=== PATIENT | female | born 1980 | race Caucasian/White ===

== ENCOUNTER 2017-06-14 14:53 | Inpatient (IN) | payer OTHER ==
--- NOTE | 2017-06-14 15:49 | ED ---
General Adult HPI - General Chief complaint: Psychiatric Symptoms Stated complaint: Mental Health Time Seen by Provider: 06/14/17 15:11 Source: patient, police, RN notes reviewed, old records reviewed Mode of arrival: ambulatory Limitations: no limitations - History of Present Illness Initial comments: This is a 36-year-old female ER for evaluation of suicidal thoughts and ideation. Patient is admitted tricking, being everyday drinker for greater than 20 years. Patient states that she is sick and tired of living, secondary living the life that she was, feels weak fatigue nauseous. Patient denies any specific life advance, denies any other drugs - Related Data Home Medications Medication Instructions Recorded Confirmed No Known Home Medications [No 02/10/16 06/14/17 Known Home Medications] Allergies Allergy/AdvReac Type Severity Reaction Status Date / Time eggplant Allergy Anaphylaxis Uncoded 06/14/17 17:13 Review of Systems ROS Statement: Those systems with pertinent positive or pertinent negative responses have been documented in the HPI. ROS Other: All systems not noted in ROS Statement are negative. Past Medical History Past Medical History: No Reported History History of Any Multi-Drug Resistant Organisms: None Reported Past Surgical History: No Surgical Hx Reported Past Psychological History: No Psychological Hx Reported Smoking Status: Former smoker Past Alcohol Use History: Abuse, Daily, Heavy Past Drug Use History: None Reported General Exam Limitations: no limitations General appearance: alert, in no apparent distress Head exam: Present: atraumatic, normocephalic, normal inspection Eye exam: Present: normal appearance, PERRL, EOMI. Absent: scleral icterus, conjunctival injection, periorbital swelling ENT exam: Present: normal exam, mucous membranes moist Neck exam: Present: normal inspection. Absent: tenderness, meningismus, lymphadenopathy Respiratory exam: Present: normal lung sounds bilaterally. Absent: respiratory distress, wheezes, rales, rhonchi, stridor Cardiovascular Exam: Present: regular rate, normal rhythm, normal heart sounds. Absent: systolic murmur, diastolic murmur, rubs, gallop, clicks GI/Abdominal exam: Present: soft, normal bowel sounds. Absent: distended, tenderness, guarding, rebound, rigid Extremities exam: Present: normal inspection, full ROM, normal capillary refill. Absent: tenderness, pedal edema, joint swelling, calf tenderness Back exam: Present: normal inspection Neurological exam: Present: alert, oriented X3, CN II-XII intact Psychiatric exam: Present: normal affect, normal mood Skin exam: Present: warm, dry, intact, normal color. Absent: rash Course Vital Signs 06/14/17 15:03 Temperature 97.4 F L Pulse Rate 130 H Respiratory 22 Rate Blood Pressure 123/86 O2 Sat by Pulse 99 Oximetry - Reevaluation(s) Reevaluation #1: 06/14/17 17:34 Patient continues to admit to suicidal thoughts Medical Decision Making - Medical Decision Making 36. EF reevaluation severe alcohol intoxication suicidal thoughts and ideation. Patient will be admitted for alcohol intoxication, psychiatric evaluation - Lab Data Result diagrams: 06/14/17 16:30 06/14/17 16:30 Lab Results 06/14/17 06/14/17 06/14/17 Range/Units 15:05 15:05 16:30 WBC (3.8-10.6) k/uL RBC (3.80-5.40) m/uL Hgb (11.4-16.0) gm/dL Hct (34.0-46.0) % MCV (80.0-100.0) fL MCH (25.0-35.0) pg MCHC (31.0-37.0) g/dL RDW (11.5-15.5) % Plt Count (150-450) k/uL Neutrophils % % Lymphocytes % % Monocytes % % Eosinophils % % Basophils % % Neutrophils # (1.3-7.7) k/uL Lymphocytes # (1.0-4.8) k/uL Monocytes # (0-1.0) k/uL Eosinophils # (0-0.7) k/uL Basophils # (0-0.2) k/uL PT (9.0-12.0) sec INR (<1.2) Sodium 146 H (137-145) mmol/L Potassium 3.0 L* (3.5-5.1) mmol/L Chloride 104 (98-107) mmol/L Carbon Dioxide 28 (22-30) mmol/L Anion Gap 14 mmol/L BUN 3 L (7-17) mg/dL Creatinine 0.50 L (0.52-1.04) mg/dL Est GFR (MDRD) Af Amer >60 (>60 ml/min/1.73 sqM) Est GFR (MDRD) Non-Af >60 (>60 ml/min/1.73 sqM) Glucose 82 (74-99) mg/dL Calcium 9.3 (8.4-10.2) mg/dL Phosphorus 3.8 (2.5-4.5) mg/dL Magnesium 1.9 (1.6-2.3) mg/dL Total Bilirubin 0.5 (0.2-1.3) mg/dL AST 105 H (14-36) U/L ALT 81 H (9-52) U/L Alkaline Phosphatase 208 H (38-126) U/L Total Protein 7.5 (6.3-8.2) g/dL Albumin 4.4 (3.5-5.0) g/dL Lipase 787 H (23-300) U/L Urine Color Light Yellow Urine Appearance Clear (Clear) Urine pH 6.5 (5.0-8.0) Ur Specific [place] 1.003 (1.001-1.035) Urine Protein Negative (Negative) Urine Glucose (UA) Negative (Negative) Urine Ketones Negative (Negative) Urine Blood Negative (Negative) Urine Nitrite Negative (Negative) Urine Bilirubin Negative (Negative) Urine Urobilinogen <2.0 (<2.0) mg/dL Ur Leukocyte Esterase Negative (Negative) Urine Opiates Screen Not Detected (NotDetected) Ur Oxycodone Screen Not Detected (NotDetected) Urine Methadone Screen Not Detected (NotDetected) Ur Propoxyphene Screen Not Detected (NotDetected) Ur Barbiturates Screen Not Detected (NotDetected) U Tricyclic Antidepress Not Detected (NotDetected) Ur Phencyclidine Scrn Not Detected (NotDetected) Ur Amphetamines Screen Not Detected (NotDetected) U Methamphetamines Scrn Not Detected (NotDetected) U Benzodiazepines Scrn Not Detected (NotDetected) Urine Cocaine Screen Not Detected (NotDetected) U Marijuana (THC) Screen Not Detected (NotDetected) Serum Alcohol 474 mg/dL 06/14/17 06/14/17 Range/Units 16:30 16:30 WBC 8.4 (3.8-10.6) k/uL RBC 4.00 (3.80-5.40) m/uL Hgb 14.4 (11.4-16.0) gm/dL Hct 39.7 (34.0-46.0) % MCV 99.1 (80.0-100.0) fL MCH 36.0 H (25.0-35.0) pg MCHC 36.3 (31.0-37.0) g/dL RDW 13.3 (11.5-15.5) % Plt Count 231 (150-450) k/uL Neutrophils % 48 % Lymphocytes % 39 % Monocytes % 8 % Eosinophils % 1 % Basophils % 0 % Neutrophils # 4.0 (1.3-7.7) k/uL Lymphocytes # 3.3 (1.0-4.8) k/uL Monocytes # 0.7 (0-1.0) k/uL Eosinophils # 0.1 (0-0.7) k/uL Basophils # 0.0 (0-0.2) k/uL PT 14.2 H (9.0-12.0) sec INR 1.5 H (<1.2) Sodium (137-145) mmol/L Potassium (3.5-5.1) mmol/L Chloride (98-107) mmol/L Carbon Dioxide (22-30) mmol/L Anion Gap mmol/L BUN (7-17) mg/dL Creatinine (0.52-1.04) mg/dL Est GFR (MDRD) Af Amer (>60 ml/min/1.73 sqM) Est GFR (MDRD) Non-Af (>60 ml/min/1.73 sqM) Glucose (74-99) mg/dL Calcium (8.4-10.2) mg/dL Phosphorus (2.5-4.5) mg/dL Magnesium (1.6-2.3) mg/dL Total Bilirubin (0.2-1.3) mg/dL AST (14-36) U/L ALT (9-52) U/L Alkaline Phosphatase (38-126) U/L Total Protein (6.3-8.2) g/dL Albumin (3.5-5.0) g/dL Lipase (23-300) U/L Urine Color Urine Appearance (Clear) Urine pH (5.0-8.0) Ur Specific [place] (1.001-1.035) Urine Protein (Negative) Urine Glucose (UA) (Negative) Urine Ketones (Negative) Urine Blood (Negative) Urine Nitrite (Negative) Urine Bilirubin (Negative) Urine Urobilinogen (<2.0) mg/dL Ur Leukocyte Esterase (Negative) Urine Opiates Screen (NotDetected) Ur Oxycodone Screen (NotDetected) Urine Methadone Screen (NotDetected) Ur Propoxyphene Screen (NotDetected) Ur Barbiturates Screen (NotDetected) U Tricyclic Antidepress (NotDetected) Ur Phencyclidine Scrn (NotDetected) Ur Amphetamines Screen (NotDetected) U Methamphetamines Scrn (NotDetected) U Benzodiazepines Scrn (NotDetected) Urine Cocaine Screen (NotDetected) U Marijuana (THC) Screen (NotDetected) Serum Alcohol mg/dL Disposition Clinical Impression: Acute anxiety, Depression, Suicidal ideation, Toxic effect of alcohol Disposition: ADMITTED IP TO THIS [facility] Condition: Fair Referrals: None,Stated [Primary Care Provider] - 1-2 days
[2017-06-14] MEDS ORDERED: FOLIC ACID 1 MG TAB PO STA (15:55)
[2017-06-14] MEDS ORDERED: THIAMINE 100 MG/ML 2 ML VIAL IVPB STA (15:55)
[2017-06-14] MEDS ORDERED: SODIUM CHLORIDE 0.9% 500 ML IV STA (15:55)
[2017-06-14] MEDS ORDERED: SODIUM CHLORIDE 0.9% 1,000 ML IV STA ×2 (15:55)
[2017-06-14] MEDS ORDERED: MULTIVITAMINS, THERA 1 EACH TAB PO STA (15:55)
[2017-06-14 16:41] LABS: Basophils % (A) 0 %; CH 36.2; CHCM 36.7; Eosinophils # (A) 0.1 k/uL (0-0.7); Eosinophils % (A) 1 %; HCT 39.7 % (34.0-46.0); HDW 2.66; HGB 14.4 gm/dL (11.4-16.0); Luc # (Auto) 0.32; Luc % (Auto) 4; Lymphocytes # (A) 3.3 k/uL (1.0-4.8); Lymphocytes % (A) 39 %; MCHC 36.3 g/dL (31.0-37.0); MCV 99.1 fL (80.0-100.0); Mean Platelet Volume 7.8; Monocytes # (A) 0.7 k/uL (0-1.0); Monocytes % (A) 8 %; Neutrophils % (A) 48 %; RDW 13.3 % (11.5-15.5); WBC 8.4 k/uL (3.8-10.6); WBC (Perox) 8.25
[2017-06-14 16:48] LABS: INR 1.5 (<1.2)
[2017-06-14 16:49] LABS: Prothrombin Time 14.2 sec (9.0-12.0)
[2017-06-14 16:51] LABS: Appearance,Urine Clear (Clear); Bilirubin,Urine Negative (Negative); Glucose,Urine (UA) Negative (Negative); Ketones,Urine Negative (Negative); Leukocyte Esterase,Urine Negative (Negative); Nitrite,Urine Negative (Negative); PH, Urine 6.5 (5.0-8.0); Protein,Urine Negative (Negative); Specific Gravity,Urine 1.003 (1.001-1.035); UA Billing (MACRO vs. MICRO) CHEM; Urobilinogen,Urine <2.0 mg/dL (<2.0)
[2017-06-14 16:52] LABS: ALT 81 U/L (9-52); AST 105 U/L (14-36); Alkaline Phosphatase 208 U/L (38-126); Anion Gap 14 mmol/L; Blood Urea Nitrogen 3 mg/dL (7-17); Calcium 9.3 mg/dL (8.4-10.2); Carbon Dioxide 28 mmol/L (22-30); Chloride 104 mmol/L (98-107); Glucose 82 mg/dL (74-99); Magnesium 1.9 mg/dL (1.6-2.3); Non-African American GFR(MDRD) >60 (>60 ml/min/1.73 sqM); Phosphorous 3.8 mg/dL (2.5-4.5); Sodium 146 mmol/L (137-145); Total Bilirubin 0.5 mg/dL (0.2-1.3); Total Protein 7.5 g/dL (6.3-8.2)
[2017-06-14 17:15] LABS: Alcohol 474 mg/dL
[2017-06-14] MEDS ORDERED: LORazepam 2 MG/ML SYRINGE IV PRN ×3 (17:29)
[2017-06-14] MEDS ORDERED: SODIUM CHLORIDE 0.9% 1,000 ML IV ONE (17:29)
[2017-06-14] MEDS ORDERED: POTASSIUM BICARB-CITRIC ACID 25 MEQ TABLET.EFF PO STA (17:29)
[2017-06-14] MEDS ORDERED: THIAMINE 100 MG/ML 2 ML VIAL IM STA (17:29)
[2017-06-14] MEDS: POTASSIUM CHLORIDE 20 MEQ, LIDOCAINE 2% INJ 20 MG in SODIUM CHLORIDE 0.9% 100 ML IVPB SCH ×3 (18:17→23:31)
[2017-06-14] MEDS ORDERED: ACETAMINOPHEN TAB 325 MG TAB PO PRN (21:56)
[2017-06-14] MEDS ORDERED: SODIUM CHLORIDE 0.9% 1,000 ML with MVI, ADULT NO.4 WITH VIT K 10 ML, THIAMINE 100 MG, F... IV ONE ×4 (21:59)
[2017-06-15] MEDS: 1: MVI, ADULT NO.4 WITH VIT K 10 ML, THIAMINE 100 MG, FOLIC ACID 1 MG in SODIUM CHLORIDE IV SCH ×8 (01:56→11:11)
[2017-06-15] MEDS ORDERED: FAMOTIDINE 20 MG TAB PO SCH (09:00)
[2017-06-15 09:42] LABS: ALT 58 U/L (9-52); AST 78 U/L (14-36); Alkaline Phosphatase 148 U/L (38-126); Amylase 40 U/L (30-110); Anion Gap 7 mmol/L; Blood Urea Nitrogen <2 mg/dL (7-17); Calcium 8.2 mg/dL (8.4-10.2); Carbon Dioxide 27 mmol/L (22-30); Chloride 101 mmol/L (98-107); Glucose 80 mg/dL (74-99); Non-African American GFR(MDRD) >60 (>60 ml/min/1.73 sqM); Potassium 3.9 mmol/L (3.5-5.1); Sodium 135 mmol/L (137-145); Total Bilirubin 1.1 mg/dL (0.2-1.3); Total Protein 5.5 g/dL (6.3-8.2)
--- NOTE | 2017-06-15 10:00 | HP ---
HISTORY AND PHYSICAL CHIEF COMPLAINTS: Alcohol intake and suicidal ideations. HISTORY OF PRESENT ILLNESS: This 36-year-old woman not being followed by any primary physician in the outpatient setting had history of tonsillectomy, depression, history of significant alcohol intake. The patient has been to rehab previously but apparently relapsed and patient was drinking heavily about one fifth and the patient has expressed some suicidal ideations and is admitted for further evaluation and treatment. On admission, the patient is found to be severely hypokalemic at 3 and sodium 146. There is no history of fever, rigors. No history of headache, loss of consciousness, seizures. Serum alcohol is found to be 474. Lipase was 4787. There is no history of any fever, rigors or chills at this time. PAST MEDICAL HISTORY: History of depression, PTSD, history of alcohol intake. HOME MEDICATION: None. ALLERGIES: EGGPLANT. FAMILY HISTORY: History of cancer of breast and ovarian. SOCIAL HISTORY: Previous history of smoking, history or alcohol. REVIEW OF SYSTEMS: ENT: No diminished hearing or vision. CARDIOVASCULAR: No angina, no palpitations. RESPIRATORY: No cough, hemoptysis. GI: No nausea : No dysuria. NERVOUS SYSTEM: No numbness or weakness. MUSCULOSKELETAL: As mentioned earlier. HEMATOLOGY/ONCOLOGY: No history of anemia. ENDOCRINE: No history of diabetes or hypothyroidism. CONSTITUTIONAL: As mentioned earlier. DERMATOLOGY: Negative. RHEUMATOLOGY: Negative. PSYCHIATRY: As mentioned earlier. PHYSICAL EXAM: Patient is alert, oriented x3. The pulse is 138, blood pressure is 120/82, respiratory 22, temp is 97.4, pulse ox 98% on room air. HEENT: Conjunctivae normal. Oral mucosa moist. NECK: No jugular venous distention. No carotid bruit. No lymph node enlargement. No thyroid enlargement. CARDIOVASCULAR: S1, S2. No S3 or S4. RESPIRATORY: Breath sounds diminished at the bases. No rhonchi, no crackles. ABDOMEN: Soft, nontender. No guarding, no rigidity. No mass palpable. LEGS: No edema, no swelling. NERVOUS SYSTEM: Higher function as mentioned. Moves all four limbs. No focal motor sensory deficits. LYMPHATICS: No lymphadenopathy in the neck, axillae or groin. SKIN: No rash, ulcer or bleeding. LABS: INR is 1.1. Sodium 140, potassium 3. Other labs are noted. ASSESSMENT: 1. Acute alcohol intoxication and withdrawal. 2. Acute alcoholic hepatitis. 3. Severe hypokalemia. 4. Hypernatremia with dehydration. 5. Elevated lipase with possible mild acute pancreatitis. 6. History of depression and PTSD by history. 7. Nicotine dependence. 8. History of ETOH. 9. Suicidal ideation. 10.Depression:. RECOMMENDATIONS AND DISCUSSION: In this 36-year-old woman presents with multiple complex medical issues. We will monitor the patient closely. Continue the current medications and continue symptomatic treatment. I recommend CIWA protocol and continue to monitor. Otherwise replace potassium and check magnesium. Psychiatric evaluation. I would also recommend amylase and lipase also. Other than that resume the rest of the home medications. Monitor blood pressure closely. Ativan p.r.n. Prognosis guarded. Discussed with the patient. Recommend alcohol rehab and as well as close follow up with primary physician in the outpatient setting. Further recommendations to follow. DEBORAH / ARNEL: [id number] /
[2017-06-15] MEDS ORDERED: THIAMINE 100 MG TAB PO SCH (12:00)
[2017-06-15 13:45] VITALS: BMI 19.3
[2017-06-15 14:29] VITALS: BP 122/79; PULSE 95; RESP 18; TEMP 98.1
--- NOTE | 2017-06-16 11:31 | PN ---
PROGRESS NOTE DATE OF SERVICE: 06/14/2017 INTERVAL HISTORY: This 36-year-old woman is admitted with ETOH as well as suicidal ideation, being closely monitored. No chest pain. No palpitations. No fever. Psychiatric evaluation pending. PHYSICAL EXAM: Alert oriented times three. Pulse 95, blood pressure 102/70, respiration 18, temperature 98.2, pulse ox 97% on room air. HEENT conjunctivae normal. Neck: No jugular venous distention. Cardiovascular: S1, S2 muffled. Respiratory: Breath sounds diminished in the bases. No rhonchi and no crackles. ABDOMEN: Soft, nontender. Legs no edema. No swelling. Central nervous system: No focal deficits. LABS: Sodium 133, potassium 3.8, LFTs are noted. ASSESSMENT: 1. Acute alcohol intoxication withdrawal. 2. Acute alcoholic hepatitis. 3. Severe hypokalemia. 4. Hypernatremia with dehydration present on admission. 5. Elevated lipase, possible mild acute pancreatitis. 6. History of depression. 7. Posttraumatic stress disorder history. 8. History of nicotine dependence. RECOMMENDATIONS AND DISCUSSION: Recommend to continue current medications. Continue symptomatic treatment. Monitor closely. Psychiatric evaluation. Guarded prognosis. Further recommendations to follow. Dyspnea office thank. MMODL / IJN: [id number] /
--- NOTE | 2017-06-16 11:52 | CONS ---
PSYCHIATRIC CONSULTATION DATE OF CONSULTATION: 06/15/2017. PURPOSE OF CONSULTATION: Evaluate for alcohol dependence and acute alcohol withdrawal. HISTORY OF PRESENT ILLNESS: The patient is a 36-year-old female, who was admitted due to significant long- term alcohol abuse, acute alcohol withdrawal and depression with suicidal thinking. The patient states that she first started drinking at age 13. Both her parents had alcohol dependence. The patient drank pretty much on a daily basis since mid teens. She entered the [facility] at age 20 and remained for 6 years. She entered treatment while in the at age 21, which was her only substance use treatment program. She has not had a past psychiatric hospitalization. She notes that she has continued to drink regularly throughout her adult life from at least age 20 on. She has not had any extended periods of sobriety up to the present. She says that her only efforts to stop drinking have been in the last 6 months. She said she has made 11 attempts at stopping drinking. She will go 1-2 weeks without drinking. She said typically she then will take a drink as a "celebration" for having been free of alcohol and then very quickly get back into regular drinking. She says in her adulthood the longest period that she may have remained sober would be typically up to about 2 weeks at most. She notes that she drinks anywhere from a pint to a fifth a day. She says that she has been quite depressed though her depression relates to the fact that she keeps relapsing with alcohol. She says she has reached a point where she recognizes the need to stop drinking. She said she pretty much lost everything about 6 months ago. She was fired from a job due to her drinking. She has since lost her house, car and boyfriend. She notes that she has not been prescribed psychotropic medications. She reports that her sleep is broken. She typically sleeps for an hour and then wakes up and this is the pattern she has had for a long time. She says that she was not truly suicidal at the time of admission, though was just feeling distressed about her situation of drinking. She does have a plan for recovery. She said that she has called the [place] and has an intake appointment on Friday the at the [facility] for outpatient counseling. She says that she knows that when she sees a counselor the counselor will be able to arrange a referral for inpatient services. She says that she counts on that based on her knowledge of the [facility]. She feels that she needs to be in a treatment program for 30 days or hopefully longer. In regards to psychiatric issues, she denies any current or past problems with hallucinations or delusions. She was vague about whether she has any posttraumatic symptoms though she recognizes that she had a difficult childhood with alcohol problems in the home as well as alcohol throughout her extended family. She denies significant anxiety or panic symptoms. She denies any thoughts or impulses towards suicide. MENTAL STATUS: Patient gave good eye contact. Psychomotor activity was a little restless. Speech was clear. She answered questions with direct responses. Her thoughts were coherent and goal directed. She had a somewhat constricted affect though not to a significant degree. Her mood was dysphoric though appropriate to her situation. She did not appear to be significantly distressed. Her cognition was clear. ASSESSMENT: This 36-year-old female is diagnosed with alcohol dependence. She may have underlying depression though through the course of continued alcohol use and through early withdrawal is difficult to be able to clearly diagnosis major depression. That would respond to antidepressant medications. I had an extensive discussion with the patient regarding withdrawal issues. We discussed that alcohol withdrawal is a 6-12 week process and that beyond 6-8 weeks it might be important for her to get further psychiatric evaluation for underlying mood disorder. The patient appears to have a pretty solid followup plan in place. She has not had significant signs of withdrawal. I reviewed the signs of serious alcohol withdrawal issues which mainly is focused on vital signs particularly fever and diaphoresis though also elevated blood pressure and pulse. The patient has not had those issues in the past. She has not identified any serious issues of withdrawal including hallucinations, seizures or any altered mental status that would suggest delirium tremens. At this point, the patient is stable to be discharged. Her followup will be through the [facility] facility. There are no psychotropic medications indicated at this time. MMRUBENL / INOCENTEN: [id number] / HONEY
== END 2017-06-15 18:30 | disposition home or self-care (01) | DRG 897 ==
LOC: EC 14:53 → 4MS4W 17:29
PROVIDERS: ADMIT Hospitalist; ATTEND Hospitalist
DX: F10.229 Alcohol dependence with intoxication, unspecified (principal); F10.239 Alcohol dependence with withdrawal, unspecified; E87.0 Hyperosmolality and hypernatremia; R45.851 Suicidal ideations; K70.10 Alcoholic hepatitis without ascites; Y90.8 Blood alcohol level of 240 mg/100 ml or more; E87.6 Hypokalemia; F32.9 Major depressive disorder, single episode, unspecified; F43.10 Post-traumatic stress disorder, unspecified; F17.200 Nicotine dependence, unspecified, uncomplicated; E86.0 Dehydration; Z91.018 Allergy to other foods
CPT/HCPCS: 36415; 80053; 80306; 80320; 81003; 82075; 82150; 83690; 83735; 84100; 85025; 85610; 96361; 96374; 99285

== ENCOUNTER 2017-06-21 10:42 | Inpatient (IN) | payer OTHER ==
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
[2017-06-21] MEDS ORDERED: IPRATROPIUM-ALBUTEROL 3 ML NEB INHALATION STA (11:07)
[2017-06-21 11:24] LABS: Basophils # (A) 0.1 k/uL (0-0.2); Basophils % (A) 1 %; CH 35.9; CHCM 35.2; Eosinophils # (A) 0.1 k/uL (0-0.7); Eosinophils % (A) 1 %; HCT 39.7 % (34.0-46.0); HDW 2.42; HGB 13.9 gm/dL (11.4-16.0); Luc # (Auto) 0.24; Luc % (Auto) 3; Lymphocytes % (A) 21 %; MCH 35.8 pg (25.0-35.0); MCV 102.2 fL (80.0-100.0); Macrocytosis Slight; Mean Platelet Volume 7.3; Monocytes # (A) 0.8 k/uL (0-1.0); Monocytes % (A) 9 %; Neutrophils # (A) 6.2 k/uL (1.3-7.7); Neutrophils % (A) 66 %; RBC 3.89 m/uL (3.80-5.40); RDW 12.9 % (11.5-15.5); WBC 9.4 k/uL (3.8-10.6)
[2017-06-21] MEDS: 1: MVI, ADULT NO.4 WITH VIT K 10 ML, THIAMINE 100 MG, FOLIC ACID 1 MG in SODIUM CHLORIDE IV SCH ×8 (11:25→15:03)
[2017-06-21] MEDS ORDERED: SODIUM CHLORIDE 0.9% 1,000 ML BAG ONE (11:25)
[2017-06-21 11:32] LABS: Acetaminophen <10.0 ug/mL; Salicylate <1.0 mg/dL
[2017-06-21 11:49] LABS: Alcohol 561 mg/dL
[2017-06-21 12:07] LABS: Creatine Kinase MB 0.4 ng/mL (0.0-2.4)
[2017-06-21] MEDS ORDERED: THIAMINE 100 MG/ML 2 ML VIAL IM STA (12:14)
[2017-06-21] MEDS ORDERED: LORazepam 2 MG/ML SYRINGE IV PRN ×3 (12:14)
[2017-06-21] MEDS: LORazepam 1 MG TAB PO PRN ×2 (14:50→21:49)
[2017-06-21] MEDS: NICOTINE 21MG/24HR PATCH TRANSDERM SCH (15:03)
[2017-06-21] MEDS ORDERED: METOCLOPRAMIDE 5 MG/ML 2 ML VIAL IVP PRN (15:57)
[2017-06-21] MEDS: THIAMINE 100 MG TAB PO SCH (16:08)
[2017-06-21 16:38] LABS: ALT 82 U/L (9-52); AST 165 U/L (14-36); Alkaline Phosphatase 243 U/L (38-126); Anion Gap 11 mmol/L; Blood Urea Nitrogen 8 mg/dL (7-17); Calcium 8.5 mg/dL (8.4-10.2); Carbon Dioxide 21 mmol/L (22-30); Chloride 108 mmol/L (98-107); Glucose 91 mg/dL (74-99); Non-African American GFR(MDRD) >60 (>60 ml/min/1.73 sqM); Potassium 4.1 mmol/L (3.5-5.1); Sodium 140 mmol/L (137-145); Total Bilirubin 0.5 mg/dL (0.2-1.3); Total Protein 6.5 g/dL (6.3-8.2)
[2017-06-21 18:03] VITALS: BMI 19.3
[2017-06-21] MEDS: HEPARIN SODIUM,PORCINE 5,000 UNIT/ML 1 ML VIAL SQ SCH (21:55)
[2017-06-21] MEDS: HYDROcodone/APAP 5-325MG 1 EACH TAB PO PRN (22:37)
--- NOTE | 2017-06-21 23:21 | HP ---
HISTORY AND PHYSICAL DATE OF SERVICE: 06/21/2017 CHIEF COMPLAINT: EtOH. HISTORY OF PRESENT ILLNESS: This 36-year-old woman with a past medical history of multiple medical problems, including acute alcoholism, history of depression, posttraumatic stress disorder being followed by no primary physician in the outpatient setting was recently admitted to the hospital with acute alcohol intoxication. Patient left the hospital AGAINST MEDICAL ADVICE, but currently patient apparently started drinking again and pile driver operator called the hospital because patient was heavily intoxicated. Patient admitted for further evaluation and treatment. There is no history of fever rigors. No history of headache, loss of consciousness, seizures. The patient apparently had depression and also had suicidal ideation. PAST MEDICAL HISTORY: History of EtOH, history of tonsillectomy, depression, PTSD. MEDICATIONS PRIOR TO ADMISSION: None. ALLERGIES: EGGPLANT. FAMILY HISTORY: History of cancer: Breast cancer, ovarian cancer. SOCIAL HISTORY: History of alcohol and previous history of smoking. REVIEW OF SYSTEMS: ENT: No diminished hearing. No diminished vision. CARDIOVASCULAR: No angina, palpitations. RESPIRATORY: No cough. GI: No nausea, vomiting. : No dysuria. NERVOUS: No numbness or weakness. ALLERGY/IMMUNOLOGY: No asthma, hay fever. MUSCULOSKELETAL: As mentioned earlier. HEMATOLOGY/ONCOLOGY: No history of anemia. ENDOCRINE: No history of diabetes, hypothyroidism. CONSTITUTIONAL: Negative. DERMATOLOGY: Negative. RHEUMATOLOGY: Negative. PSYCHIATRY: As mentioned earlier. PHYSICAL EXAM: The patient is alert, oriented x3. Pulse 134, blood pressure 113/60, respiration 18, temperature 98 degrees, pulse ox 99% on room air. HEENT: Conjunctivae normal. Oral mucosa moist. NECK: No jugular venous distention. No carotid bruits. No lymph node enlargement. CARDIOVASCULAR: S1, S2 muffled. RESPIRATORY: Breath sounds diminished in the bases. A few scattered rhonchi. No crackles. ABDOMEN: Soft, nontender. No mass palpable. LEGS: No edema. No swelling. NERVOUS SYSTEM: Higher functions as mentioned. Moves all 4 limbs. No focal motor or sensory deficits. LYMPHATIC: No lymphadenopathy in neck or axillae. SKIN: No ulcer, rash or bleeding. LABS: Reviewed at this time, shows WBC 9.4, hemoglobin is normal, MCV 102.82. Drug screen is positive for cocaine. Alcohol 561. ASSESSMENT: 1. Acute alcohol intoxication. 2. Positive cocaine and drug screen. 3. History of depression. 4. History of suicidal ideations and posttraumatic stress disorder. 5. History of nicotine dependence. 6. History of hypokalemia and acute pancreatitis during the recent admission. RECOMMENDATIONS AND DISCUSSION: In this 36-year-old woman who presented with multiple complex medical issues, at this time I would recommend continuing the current medications, continuing the symptomatic treatment. Alcohol cessation has been recommended. I would also recommend amylase, lipase, psychiatric evaluation. Otherwise, will also order a CMP which includes the lytes as well on a stat basis. Guarded prognosis because of multiple complex medical issues. Further recommendations to follow. See orders for further details. BALAWA protocol. MMODL / IJN: [id number] /
[2017-06-21 23:22] VITALS: RESP 16
[2017-06-22] MEDS: 1: MVI, ADULT NO.4 WITH VIT K 10 ML, THIAMINE 100 MG, FOLIC ACID 1 MG in SODIUM CHLORIDE IV SCH ×8 (00:56→10:50)
[2017-06-22] MEDS: LORazepam 1 MG TAB PO PRN ×2 (03:03→14:36)
[2017-06-22] MEDS: HYDROcodone/APAP 5-325MG 1 EACH TAB PO PRN (04:29)
[2017-06-22] MEDS ORDERED: PANTOPRAZOLE 40 MG TABLET PO SCH (07:30)
[2017-06-22 07:31] VITALS: BP 110/76; PULSE 107; TEMP 98.6
[2017-06-22 07:32] LABS: Basophils % (A) 1 %; CH 35.3; CHCM 34.7; Eosinophils # (A) 0.1 k/uL (0-0.7); Eosinophils % (A) 1 %; HCT 31.4 % (34.0-46.0); HDW 2.42; HGB 11.1 gm/dL (11.4-16.0); Luc # (Auto) 0.07; Luc % (Auto) 1; Lymphocytes # (A) 1.6 k/uL (1.0-4.8); Lymphocytes % (A) 25 %; MCHC 35.3 g/dL (31.0-37.0); Macrocytosis Slight; Mean Platelet Volume 7.4; Monocytes # (A) 0.3 k/uL (0-1.0); Monocytes % (A) 5 %; Neutrophils # (A) 4.3 k/uL (1.3-7.7); Neutrophils % (A) 67 %; RBC 3.07 m/uL (3.80-5.40); RDW 12.9 % (11.5-15.5); WBC 6.5 k/uL (3.8-10.6); WBC (Perox) 6.36
[2017-06-22] MEDS: NICOTINE 21MG/24HR PATCH TRANSDERM SCH (07:39)
[2017-06-22] MEDS: HEPARIN SODIUM,PORCINE 5,000 UNIT/ML 1 ML VIAL SQ SCH (07:39)
[2017-06-22 07:47] LABS: ALT 86 U/L (9-52); AST 205 U/L (14-36); Alkaline Phosphatase 198 U/L (38-126); Anion Gap 7 mmol/L; Blood Urea Nitrogen 7 mg/dL (7-17); Calcium 7.9 mg/dL (8.4-10.2); Carbon Dioxide 22 mmol/L (22-30); Chloride 106 mmol/L (98-107); Glucose 52 mg/dL (74-99); Non-African American GFR(MDRD) >60 (>60 ml/min/1.73 sqM); Potassium 3.7 mmol/L (3.5-5.1); Sodium 135 mmol/L (137-145); Total Bilirubin 0.6 mg/dL (0.2-1.3); Total Protein 5.2 g/dL (6.3-8.2)
[2017-06-22 08:57] LABS: Glucose,Whole Blood 96 mg/dL (75-99)
[2017-06-22] MEDS ORDERED: SODIUM CHLORIDE 0.9% 1,000 ML BAG ONE (10:50)
[2017-06-22] MEDS: THIAMINE 100 MG TAB PO SCH (11:50)
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
--- NOTE | 2017-06-22 18:44 | P.DS ---
Providers Date of admission: 06/21/17 12:15 Attending physician: Fabiola Medina Consults: 06/21/17 12:30 Consult Physician Routine Consulting Provider: Malu Major Consult Reason/Comments: suicidal ideation Do you want consulting provider notified?: Yes Primary care physician: Miguel Graves [place] Hospital Course: This 36 old woman with a past medical history multiple medical was including chronic alcoholism was admitted with acute alcohol intoxication. The patient was treated symptomatically. The patient was in the psych 3. Cleared for discharge at this time. Recommended to [facility] Recommended alcohol rehab and as well as to attend AA meetings. Will be discharged in a stable condition with guarded prognosis. Follow-up with psych as an outpatient. On exam vitals stable. Cardio S1 and S2 normal. Abdomen soft nontender. No system no focal deficit. Final diagnosis 1. Acute alcohol intoxication. 2. Positive cocaine drug screen. 3. History of depression. 4. History of posttraumatic stress disorder. 4. Nicotine dependence. 5. History of hypokalemia and acute pancreatitis during the recent admission. Plan - Discharge Summary New Discharge Prescriptions: New Folic Acid 1 mg PO DAILY #30 tablet LORazepam [Ativan] 1 mg PO TID PRN #20 tab PRN Reason: Anxiety Multivitamins, Thera [Multivitamin] 1 tab PO DAILY #30 tablet Nicotine 21Mg/24Hr Patch [Habitrol] 1 patch TRANSDERM DAILY #30 patch Thiamine [Vitamin B-1] 100 mg PO BID@1200,1700 #30 tab Discharge Medication List Folic Acid 1 mg PO DAILY #30 tablet 06/22/17 [Rx] LORazepam [Ativan] 1 mg PO TID PRN #20 tab 06/22/17 [Rx] Multivitamins, Thera [Multivitamin] 1 tab PO DAILY #30 tablet 06/22/17 [Rx] Nicotine 21Mg/24Hr Patch [Habitrol] 1 patch TRANSDERM DAILY #30 patch 06/22/17 [ Rx] Thiamine [Vitamin B-1] 100 mg PO BID@1200,1700 #30 tab 06/22/17 [Rx] Follow up Appointment(s)/Referral(s): Miguel Graves DO [Primary Care Provider] - 1-2 days Patient Instructions/Handouts: Cocaine Abuse (DC), Alcohol Intoxication (DC) Activity/Diet/Wound Care/Special Instructions: diet regular act as tolerated no alcohol attend aa Discharge Disposition: HOME SELF-CARE
== END 2017-06-22 14:56 | disposition home or self-care (01) | DRG 897 ==
LOC: EC 10:42 → 4MS4W 12:15
PROVIDERS: ADMIT Hospitalist; ATTEND Hospitalist
DX: F10.229 Alcohol dependence with intoxication, unspecified (principal); F14.90 Cocaine use, unspecified, uncomplicated; R45.851 Suicidal ideations; K70.9 Alcoholic liver disease, unspecified; Y90.8 Blood alcohol level of 240 mg/100 ml or more; F17.200 Nicotine dependence, unspecified, uncomplicated; F32.9 Major depressive disorder, single episode, unspecified; F43.10 Post-traumatic stress disorder, unspecified; Z80.3 Family history of malignant neoplasm of breast; Z80.41 Family history of malignant neoplasm of ovary; M54.30 Sciatica, unspecified side
CPT/HCPCS: 36415; 80053; 80306; 80320; 81025; 82075; 82550; 82553; 83520; 85025; 93005; 94640; 96365; 96366; 96372; 99285

== ENCOUNTER 2017-06-27 17:29 | Inpatient (IN) | payer OTHER ==
[~2017-06-27 17:29] MED LIST: THIAMINE 100 MG TAB PO SCH
[2017-06-27] MEDS ORDERED: SODIUM CHLORIDE 0.9% 1,000 ML IV STA (17:31)
[2017-06-27 18:05] LABS: Basophils % (A) 0 %; CH 36.4; CHCM 35.3; Eosinophils # (A) 0.1 k/uL (0-0.7); Eosinophils % (A) 1 %; HCT 34.8 % (34.0-46.0); HDW 2.67; Luc # (Auto) 0.27; Luc % (Auto) 3; Lymphocytes # (A) 2.1 k/uL (1.0-4.8); Lymphocytes % (A) 20 %; MCH 35.7 pg (25.0-35.0); MCHC 34.4 g/dL (31.0-37.0); MCV 103.7 fL (80.0-100.0); Macrocytosis Slight; Mean Platelet Volume 9.2; Monocytes # (A) 0.7 k/uL (0-1.0); Monocytes % (A) 7 %; Neutrophils # (A) 7.3 k/uL (1.3-7.7); Neutrophils % (A) 69 %; RBC 3.36 m/uL (3.80-5.40); RDW 14.7 % (11.5-15.5); WBC 10.6 k/uL (3.8-10.6); WBC (Perox) 11.24
[2017-06-27 18:15] LABS: ALT 56 U/L (9-52); AST 77 U/L (14-36); Acetaminophen <10.0 ug/mL; Alkaline Phosphatase 171 U/L (38-126); Amylase 68 U/L (30-110); Anion Gap 11 mmol/L; Blood Urea Nitrogen 4 mg/dL (7-17); Calcium 9.1 mg/dL (8.4-10.2); Carbon Dioxide 25 mmol/L (22-30); Chloride 105 mmol/L (98-107); Glucose 83 mg/dL (74-99); Non-African American GFR(MDRD) >60 (>60 ml/min/1.73 sqM); Salicylate <1.0 mg/dL; Sodium 141 mmol/L (137-145); Total Bilirubin 0.8 mg/dL (0.2-1.3); Total Protein 6.5 g/dL (6.3-8.2)
[2017-06-27] MEDS ORDERED: SODIUM CHLORIDE 0.9% 1,000 ML IV SCH (18:15)
[2017-06-27 18:24] LABS: Alcohol 366 mg/dL
[2017-06-27] MEDS ORDERED: THIAMINE 100 MG/ML 2 ML VIAL IM STA (18:37)
[2017-06-27] MEDS ORDERED: LORazepam 2 MG/ML SYRINGE IV PRN ×3 (18:37)
[2017-06-27] MEDS ORDERED: ACETAMINOPHEN TAB 325 MG TAB PO PRN (18:38)
[2017-06-27] MEDS ORDERED: NALOXONE 0.4 MG/ML 1 ML VIAL IV PRN (18:38)
--- NOTE | 2017-06-27 18:51 | ED ---
General Adult HPI - General Chief complaint: Overdose Stated complaint: Altered Time Seen by Provider: 06/27/17 17:31 Source: patient, EMS, RN notes reviewed Mode of arrival: EMS - History of Present Illness Initial comments: 36 yo female presents as a suspected benzodiazepine overdose. According to EMS patient's mother states she was at the [place] for evaluation of depression and PTSD she was given a prescription for Ativan 1 mg. According to the patient's mother she took 31 mg Ativan pills over the course of 3 hours per she became progressively more lethargic, slurred speech, and ultimately was unresponsive. At the time my evaluation patient is lethargic and obtunded unable to give detailed history. She does withdraw to pain. She does admit to drinking some alcohol on top of the benzodiazepines. History is unable to be obtained. There is no history to support specific suicide attempt, however the patient is much too lethargic to give this history at the time of my evaluation. - Related Data Previous Rx's Medication Instructions Recorded Folic Acid 1 mg PO DAILY #30 tablet 06/22/17 LORazepam [Ativan] 1 mg PO TID PRN #20 tab 06/22/17 Multivitamins, Thera [Multivitamin] 1 tab PO DAILY #30 tablet 06/22/17 Nicotine 21Mg/24Hr Patch [Habitrol] 1 patch TRANSDERM DAILY #30 patch 06/22/17 Thiamine [Vitamin B-1] 100 mg PO BID@1200,1700 #30 tab 06/22/17 Allergies Allergy/AdvReac Type Severity Reaction Status Date / Time eggplant Allergy Anaphylaxis Uncoded 06/21/17 10:58 Review of Systems ROS Statement: Those systems with pertinent positive or pertinent negative responses have been documented in the HPI. ROS Other: All systems not noted in ROS Statement are negative. Past Medical History Past Medical History: No Reported History Additional Past Medical History / Comment(s): ETOH History of Any Multi-Drug Resistant Organisms: None Reported Past Surgical History: Tonsillectomy Past Anesthesia/Blood Transfusion Reactions: No Reported Reaction Past Psychological History: Depression, PTSD Smoking Status: Smoker, current status unknown Past Alcohol Use History: Abuse, Daily, Heavy Past Drug Use History: None Reported, Cocaine - Past Family History Mother Family Medical History: Cancer Additional Family Medical History / Comment(s): Breast and ovarian CA Brother(s) Family Medical History: No Reported History General Exam General appearance: lethargic, obtunded Head exam: Present: atraumatic, normocephalic Eye exam: Present: normal appearance, PERRL. Absent: scleral icterus, conjunctival injection ENT exam: Present: normal exam, mucous membranes moist Neck exam: Present: normal inspection, full ROM. Absent: meningismus Respiratory exam: Present: normal lung sounds bilaterally. Absent: respiratory distress, wheezes Cardiovascular Exam: Present: regular rate, normal rhythm GI/Abdominal exam: Present: soft. Absent: distended, tenderness Extremities exam: Present: normal inspection, normal capillary refill. Absent: pedal edema Neurological exam: Absent: motor sensory deficit (Patient will respond to deep sternal rub, she is moving all 4 extremities, no focal neurological findings) Psychiatric exam: Present: depressed, flat affect Skin exam: Present: warm, dry, intact. Absent: cyanosis, diaphoretic Course Vital Signs 06/27/17 06/27/17 06/27/17 17:40 18:20 18:29 Temperature 97.1 F L Pulse Rate 109 H 105 H 95 Respiratory 16 16 16 Rate Blood Pressure 109/61 100/60 106/55 O2 Sat by Pulse 98 98 96 Oximetry - Reevaluation(s) Reevaluation #1: 06/27/17 18:45 Reevaluation patient is still lethargic. According to nursing staff she will answer questions intermittently, she was alert and oriented 3. EKG Findings - EKG Comments: EKG Findings:: EKG shows normal sinus rhythm, ventricular rate of 94, AR interval 120, QRS duration 98, QTC is prolonged at 497, no ST segment elevation or depression, no T-wave abnormality Medical Decision Making - Medical Decision Making 36 yo female presenting with suspected benzodiazepine overdose. EMS brings in a prescription for Ativan 1 mg for today, 30 pills total, 3 are missing. This is consistent with history from the patient's mother. Patient has nonfocal neurologic examination. Laboratory studies reveal a serum alcohol 366, mild lactic acidosis 2.7. Potassium is 3.0 this is replaced. Patient is given IV hydration for lactic acidosis. She was placed on a CT was scale. She will be admitted for alcohol overdose and suspected benzodiazepine overdose. Psychiatry is placed on consult for evaluation when the patient is sober. Diagnosis: Poisoning by alcohol, benzodiazepine overdose - Lab Data Result diagrams: 06/27/17 17:41 06/27/17 17:41 Lab Results 06/27/17 06/27/17 06/27/17 Range/Units 17:41 17:41 17:48 WBC 10.6 (3.8-10.6) k/uL RBC 3.36 L (3.80-5.40) m/uL Hgb 12.0 (11.4-16.0) gm/dL Hct 34.8 (34.0-46.0) % MCV 103.7 H (80.0-100.0) fL MCH 35.7 H (25.0-35.0) pg MCHC 34.4 (31.0-37.0) g/dL RDW 14.7 (11.5-15.5) % Plt Count 173 (150-450) k/uL Neutrophils % 69 % Lymphocytes % 20 % Monocytes % 7 % Eosinophils % 1 % Basophils % 0 % Neutrophils # 7.3 (1.3-7.7) k/uL Lymphocytes # 2.1 (1.0-4.8) k/uL Monocytes # 0.7 (0-1.0) k/uL Eosinophils # 0.1 (0-0.7) k/uL Basophils # 0.0 (0-0.2) k/uL Macrocytosis Slight Sodium 141 (137-145) mmol/L Potassium 3.0 L* (3.5-5.1) mmol/L Chloride 105 (98-107) mmol/L Carbon Dioxide 25 (22-30) mmol/L Anion Gap 11 mmol/L BUN 4 L (7-17) mg/dL Creatinine 0.40 L (0.52-1.04) mg/dL Est GFR (MDRD) Af Amer >60 (>60 ml/min/1.73 sqM) Est GFR (MDRD) Non-Af >60 (>60 ml/min/1.73 sqM) Glucose 83 (74-99) mg/dL Plasma Lactic Acid Rudy (0.7-2.0) mmol/L Calcium 9.1 (8.4-10.2) mg/dL Total Bilirubin 0.8 (0.2-1.3) mg/dL AST 77 H (14-36) U/L ALT 56 H (9-52) U/L Alkaline Phosphatase 171 H (38-126) U/L Total Protein 6.5 (6.3-8.2) g/dL Albumin 3.7 (3.5-5.0) g/dL Amylase 68 (30-110) U/L Lipase 323 H (23-300) U/L Urine HCG, Qual (Not Detectd) Salicylates <1.0 mg/dL Urine Opiates Screen Not Detected (NotDetected) Ur Oxycodone Screen Not Detected (NotDetected) Urine Methadone Screen Not Detected (NotDetected) Ur Propoxyphene Screen Not Detected (NotDetected) Acetaminophen <10.0 ug/mL Ur Barbiturates Screen Not Detected (NotDetected) U Tricyclic Antidepress Not Detected (NotDetected) Ur Phencyclidine Scrn Not Detected (NotDetected) Ur Amphetamines Screen Not Detected (NotDetected) U Methamphetamines Scrn Not Detected (NotDetected) U Benzodiazepines Scrn Not Detected (NotDetected) Urine Cocaine Screen Not Detected (NotDetected) U Marijuana (THC) Screen Not Detected (NotDetected) Serum Alcohol 366 mg/dL 06/27/17 06/27/17 Range/Units 17:48 17:48 WBC (3.8-10.6) k/uL RBC (3.80-5.40) m/uL Hgb (11.4-16.0) gm/dL Hct (34.0-46.0) % MCV (80.0-100.0) fL MCH (25.0-35.0) pg MCHC (31.0-37.0) g/dL RDW (11.5-15.5) % Plt Count (150-450) k/uL Neutrophils % % Lymphocytes % % Monocytes % % Eosinophils % % Basophils % % Neutrophils # (1.3-7.7) k/uL Lymphocytes # (1.0-4.8) k/uL Monocytes # (0-1.0) k/uL Eosinophils # (0-0.7) k/uL Basophils # (0-0.2) k/uL Macrocytosis Sodium (137-145) mmol/L Potassium (3.5-5.1) mmol/L Chloride (98-107) mmol/L Carbon Dioxide (22-30) mmol/L Anion Gap mmol/L BUN (7-17) mg/dL Creatinine (0.52-1.04) mg/dL Est GFR (MDRD) Af Amer (>60 ml/min/1.73 sqM) Est GFR (MDRD) Non-Af (>60 ml/min/1.73 sqM) Glucose (74-99) mg/dL Plasma Lactic Acid Rudy 2.7 H* (0.7-2.0) mmol/L Calcium (8.4-10.2) mg/dL Total Bilirubin (0.2-1.3) mg/dL AST (14-36) U/L ALT (9-52) U/L Alkaline Phosphatase (38-126) U/L Total Protein (6.3-8.2) g/dL Albumin (3.5-5.0) g/dL Amylase (30-110) U/L Lipase (23-300) U/L Urine HCG, Qual Not Detected (Not Detectd) Salicylates mg/dL Urine Opiates Screen (NotDetected) Ur Oxycodone Screen (NotDetected) Urine Methadone Screen (NotDetected) Ur Propoxyphene Screen (NotDetected) Acetaminophen ug/mL Ur Barbiturates Screen (NotDetected) U Tricyclic Antidepress (NotDetected) Ur Phencyclidine Scrn (NotDetected) Ur Amphetamines Screen (NotDetected) U Methamphetamines Scrn (NotDetected) U Benzodiazepines Scrn (NotDetected) Urine Cocaine Screen (NotDetected) U Marijuana (THC) Screen (NotDetected) Serum Alcohol mg/dL Disposition Clinical Impression: Alcohol intoxication, Benzodiazepine overdose Disposition: ADMITTED IP TO THIS [facility] Condition: Stable Referrals: Miguel Graves DO [Primary Care Provider] - 1-2 days Decision to Admit Reason: Admit from EC Decision Date: 06/27/17 Decision Time: 18:51
[2017-06-27] MEDS: POTASSIUM CHLORIDE 10 MEQ, LIDOCAINE 2% INJ 10 MG in SODIUM CHLORIDE 0.9% 100 ML IVPB SCH ×4 (19:31→23:39)
[2017-06-27 22:34] VITALS: RESP 18
[2017-06-27 23:12] VITALS: BMI 20.5
[2017-06-28] MEDS ORDERED: NICOTINE 14MG/24HR PATCH TRANSDERM SCH (00:52)
[2017-06-28 01:40] VITALS: PULSE 95
[2017-06-28 02:01] VITALS: BP 89/54; TEMP 97
== END 2017-06-28 02:11 | disposition left against medical advice (07) | DRG 918 ==
LOC: EC 17:29 → 6SEL 18:38
PROVIDERS: ADMIT Hospitalist; ATTEND Hospitalist
DX: T42.4X1A Poisoning by benzodiazepines, accidental (unintentional), initial encounter (principal); R45.851 Suicidal ideations; F32.9 Major depressive disorder, single episode, unspecified; T51.0X1A Toxic effect of ethanol, accidental (unintentional), initial encounter; F43.10 Post-traumatic stress disorder, unspecified; F10.129 Alcohol abuse with intoxication, unspecified; F14.929 Cocaine use, unspecified with intoxication, unspecified; Y90.8 Blood alcohol level of 240 mg/100 ml or more; Z53.21 Procedure and treatment not carried out due to patient leaving prior to being seen by health care provider; Z91.018 Allergy to other foods; Z71.41 Alcohol abuse counseling and surveillance of alcoholic; Z80.3 Family history of malignant neoplasm of breast; Z80.41 Family history of malignant neoplasm of ovary; Z90.49 Acquired absence of other specified parts of digestive tract
CPT/HCPCS: 36415; 80053; 80306; 80320; 81025; 82150; 83520; 83605; 83690; 85025; 93005; 96360; 96372; 99285

== ENCOUNTER 2017-06-30 15:07 | Emergency (ER) | payer OTHER ==
[2017-06-30 15:26] VITALS: RESP 18; TEMP 97.4
[2017-06-30] MEDS ORDERED: SODIUM CHLORIDE 0.9% 1,000 ML with MVI, ADULT NO.4 WITH VIT K 10 ML, THIAMINE 100 MG, F... IV ONE ×4 (16:17)
[2017-06-30 16:33] LABS: Basophils % (A) 0 %; CH 35.5; CHCM 35.1; Eosinophils # (A) 0.1 k/uL (0-0.7); Eosinophils % (A) 1 %; HCT 35.2 % (34.0-46.0); HGB 12.5 gm/dL (11.4-16.0); Luc # (Auto) 0.18; Luc % (Auto) 3; Lymphocytes # (A) 1.4 k/uL (1.0-4.8); Lymphocytes % (A) 23 %; MCH 35.9 pg (25.0-35.0); MCHC 35.4 g/dL (31.0-37.0); MCV 101.5 fL (80.0-100.0); Macrocytosis Slight; Mean Platelet Volume 7.4; Monocytes # (A) 0.5 k/uL (0-1.0); Monocytes % (A) 9 %; Neutrophils # (A) 3.8 k/uL (1.3-7.7); Neutrophils % (A) 63 %; RBC 3.47 m/uL (3.80-5.40); RDW 13.9 % (11.5-15.5); WBC 5.9 k/uL (3.8-10.6); WBC (Perox) 6.42
--- NOTE | 2017-06-30 16:39 | XR ---
EXAMINATION TYPE: XR chest 1V portable DATE OF EXAM: 06/30/2017 COMPARISON: NONE HISTORY: Positive EtOH with pain per order. TECHNIQUE: 2 AP portable frontal upright views of the chest are obtained. FINDINGS: There is no focal air space opacity, pleural effusion, or pneumothorax seen. The cardiac silhouette size is within normal limits. The osseous structures are intact. IMPRESSION: No acute process.
[2017-06-30 16:45] LABS: ALT 54 U/L (9-52); AST 60 U/L (14-36); Alkaline Phosphatase 179 U/L (38-126); Amylase 42 U/L (30-110); Anion Gap 9 mmol/L; Blood Urea Nitrogen 5 mg/dL (7-17); Calcium 8.8 mg/dL (8.4-10.2); Carbon Dioxide 26 mmol/L (22-30); Chloride 108 mmol/L (98-107); Glucose 80 mg/dL (74-99); Non-African American GFR(MDRD) >60 (>60 ml/min/1.73 sqM); Potassium 3.2 mmol/L (3.5-5.1); Sodium 143 mmol/L (137-145); Total Bilirubin 0.5 mg/dL (0.2-1.3); Total Protein 6.1 g/dL (6.3-8.2)
[2017-06-30 16:45] LABS: Appearance,Urine Clear (Clear); Bacteria,Urine Rare /hpf; Bilirubin,Urine Negative (Negative); Glucose,Urine (UA) Negative (Negative); Ketones,Urine Negative (Negative); Leukocyte Esterase,Urine Negative (Negative); Mucus,Urine Rare /hpf; Nitrite,Urine Negative (Negative); Particle Count 2818; Protein,Urine Negative (Negative); RBC,Urine <1 /hpf (0-5); Specific Gravity,Urine 1.002 (1.001-1.035); Squamous Epithelial Cell,Urine <1 /hpf (0-4); UA Billing (MACRO vs. MICRO) MICRO; Urobilinogen,Urine <2.0 mg/dL (<2.0)
[2017-06-30 16:54] LABS: Creatine Kinase 73 U/L (30-135)
[2017-06-30 16:56] LABS: Alcohol 384 mg/dL
--- NOTE | 2017-06-30 17:04 | ED ---
Alcohol HPI - General Chief Complaint: Alcohol Stated Complaint: ETOH Time Seen by Provider: 06/30/17 16:00 Source: EMS, RN notes reviewed, old records reviewed Mode of arrival: EMS Limitations: no limitations - History of Present Illness Initial Comments: This is a 36-year-old female history of alcohol abuse and frequent admissions for alcohol intoxication also cocaine and benzo abuse who is here again for apparent alcohol intoxication. She is found sitting in the rain and brought in by EMS. She demonstrated slurred speech she apparently did fall though there is no evidence of any trauma. She does have a healing bruise apparently on her right volar forearm. No other signs of trauma. MD Complaint: alcohol intoxication - Related Data Previous Rx's Medication Instructions Recorded Folic Acid 1 mg PO DAILY #30 tablet 06/22/17 LORazepam [Ativan] 1 mg PO TID PRN #20 tab 06/22/17 Multivitamins, Thera [Multivitamin] 1 tab PO DAILY #30 tablet 06/22/17 Nicotine 21Mg/24Hr Patch [Habitrol] 1 patch TRANSDERM DAILY #30 patch 06/22/17 Thiamine [Vitamin B-1] 100 mg PO BID@1200,1700 #30 tab 06/22/17 Allergies Allergy/AdvReac Type Severity Reaction Status Date / Time eggplant Allergy Anaphylaxis Uncoded 06/30/17 15:26 Review of Systems ROS Statement: Those systems with pertinent positive or pertinent negative responses have been documented in the HPI. ROS Other: All systems not noted in ROS Statement are negative. Limitations: ROS unobtainable due to patients medical condition Past Medical History Past Medical History: No Reported History Additional Past Medical History / Comment(s): ETOH History of Any Multi-Drug Resistant Organisms: None Reported Past Surgical History: Tonsillectomy Past Anesthesia/Blood Transfusion Reactions: No Reported Reaction Past Psychological History: Anxiety, Depression, PTSD Smoking Status: Current every day smoker Past Alcohol Use History: Abuse, Daily, Heavy Past Drug Use History: None Reported - Past Family History Mother Family Medical History: Cancer Additional Family Medical History / Comment(s): Breast and ovarian CA Brother(s) Family Medical History: No Reported History General Exam - General Exam Comments Initial Comments: This a well-developed well-nourished lethargic female who does respond to painful stimuli and verbal stimuli. She does have the smell of alcohol conjoiners on her breath. Limitations: no limitations General appearance: lethargic Head exam: Present: atraumatic, normocephalic, normal inspection Eye exam: Present: normal appearance, PERRL, EOMI. Absent: scleral icterus, conjunctival injection, periorbital swelling ENT exam: Present: normal exam, mucous membranes moist Neck exam: Present: normal inspection. Absent: tenderness, meningismus, lymphadenopathy Respiratory exam: Present: normal lung sounds bilaterally. Absent: respiratory distress, wheezes, rales, rhonchi, stridor Cardiovascular Exam: Present: regular rate, normal rhythm, normal heart sounds. Absent: systolic murmur, diastolic murmur, rubs, gallop, clicks GI/Abdominal exam: Present: soft, normal bowel sounds. Absent: distended, tenderness, guarding, rebound, rigid Extremities exam: Present: normal inspection, full ROM, normal capillary refill , other (There is a healing ecchymotic area to the mid volar right forearm no other bruising noted). Absent: tenderness, pedal edema, joint swelling, calf tenderness Back exam: Present: normal inspection Neurological exam: Present: altered, CN II-XII intact. Absent: motor sensory deficit Psychiatric exam: Present: other (Unable to fully evaluate at this time) Skin exam: Present: warm, dry, intact, normal color. Absent: rash Course Vital Signs 06/30/17 06/30/17 06/30/17 15:11 16:26 17:31 Temperature 97.4 F L Pulse Rate 86 80 93 Respiratory 18 18 18 Rate Blood Pressure 116/79 103/71 131/82 O2 Sat by Pulse 98 100 100 Oximetry Medical Decision Making - Medical Decision Making The patient did rest comfortably emergency department she was awake alert oriented 3 able ably without difficulty. She did not want stay longer her mother was one coming take her home. - Lab Data Result diagrams: 06/30/17 16:22 06/30/17 16:22 Lab Results 06/30/17 06/30/17 06/30/17 Range/Units 16:22 16:22 16:22 WBC 5.9 (3.8-10.6) k/uL RBC 3.47 L (3.80-5.40) m/uL Hgb 12.5 (11.4-16.0) gm/dL Hct 35.2 (34.0-46.0) % MCV 101.5 H (80.0-100.0) fL MCH 35.9 H (25.0-35.0) pg MCHC 35.4 (31.0-37.0) g/dL RDW 13.9 (11.5-15.5) % Plt Count 227 (150-450) k/uL Neutrophils % 63 % Lymphocytes % 23 % Monocytes % 9 % Eosinophils % 1 % Basophils % 0 % Neutrophils # 3.8 (1.3-7.7) k/uL Lymphocytes # 1.4 (1.0-4.8) k/uL Monocytes # 0.5 (0-1.0) k/uL Eosinophils # 0.1 (0-0.7) k/uL Basophils # 0.0 (0-0.2) k/uL Macrocytosis Slight Sodium 143 (137-145) mmol/L Potassium 3.2 L (3.5-5.1) mmol/L Chloride 108 H (98-107) mmol/L Carbon Dioxide 26 (22-30) mmol/L Anion Gap 9 mmol/L BUN 5 L (7-17) mg/dL Creatinine 0.50 L (0.52-1.04) mg/dL Est GFR (MDRD) Af Amer >60 (>60 ml/min/1.73 sqM) Est GFR (MDRD) Non-Af >60 (>60 ml/min/1.73 sqM) Glucose 80 (74-99) mg/dL Calcium 8.8 (8.4-10.2) mg/dL Magnesium 2.0 (1.6-2.3) mg/dL Total Bilirubin 0.5 (0.2-1.3) mg/dL AST 60 H (14-36) U/L ALT 54 H (9-52) U/L Alkaline Phosphatase 179 H (38-126) U/L Ammonia (<30) umol/L Total Creatine Kinase 73 (30-135) U/L CK-MB (CK-2) 0.5 (0.0-2.4) ng/mL CK-MB (CK-2) Rel Index 0.7 Troponin I <0.012 (0.000-0.034) ng/mL Total Protein 6.1 L (6.3-8.2) g/dL Albumin 3.5 (3.5-5.0) g/dL Amylase 42 (30-110) U/L Lipase 102 (23-300) U/L Urine Color Urine Appearance (Clear) Urine pH (5.0-8.0) Ur Specific [place] (1.001-1.035) Urine Protein (Negative) Urine Glucose (UA) (Negative) Urine Ketones (Negative) Urine Blood (Negative) Urine Nitrite (Negative) Urine Bilirubin (Negative) Urine Urobilinogen (<2.0) mg/dL Ur Leukocyte Esterase (Negative) Urine RBC (0-5) /hpf Ur Squamous Epith Cells (0-4) /hpf Urine Bacteria (None) /hpf Urine Mucus (None) /hpf Urine HCG, Qual (Not Detectd) Urine Opiates Screen (NotDetected) Ur Oxycodone Screen (NotDetected) Urine Methadone Screen (NotDetected) Ur Propoxyphene Screen (NotDetected) Ur Barbiturates Screen (NotDetected) U Tricyclic Antidepress (NotDetected) Ur Phencyclidine Scrn (NotDetected) Ur Amphetamines Screen (NotDetected) U Methamphetamines Scrn (NotDetected) U Benzodiazepines Scrn (NotDetected) Urine Cocaine Screen (NotDetected) U Marijuana (THC) Screen (NotDetected) Serum Alcohol 384 mg/dL 06/30/17 06/30/17 06/30/17 Range/Units 16:28 16:30 16:30 WBC (3.8-10.6) k/uL RBC (3.80-5.40) m/uL Hgb (11.4-16.0) gm/dL Hct (34.0-46.0) % MCV (80.0-100.0) fL MCH (25.0-35.0) pg MCHC (31.0-37.0) g/dL RDW (11.5-15.5) % Plt Count (150-450) k/uL Neutrophils % % Lymphocytes % % Monocytes % % Eosinophils % % Basophils % % Neutrophils # (1.3-7.7) k/uL Lymphocytes # (1.0-4.8) k/uL Monocytes # (0-1.0) k/uL Eosinophils # (0-0.7) k/uL Basophils # (0-0.2) k/uL Macrocytosis Sodium (137-145) mmol/L Potassium (3.5-5.1) mmol/L Chloride (98-107) mmol/L Carbon Dioxide (22-30) mmol/L Anion Gap mmol/L BUN (7-17) mg/dL Creatinine (0.52-1.04) mg/dL Est GFR (MDRD) Af Amer (>60 ml/min/1.73 sqM) Est GFR (MDRD) Non-Af (>60 ml/min/1.73 sqM) Glucose (74-99) mg/dL Calcium (8.4-10.2) mg/dL Magnesium (1.6-2.3) mg/dL Total Bilirubin (0.2-1.3) mg/dL AST (14-36) U/L ALT (9-52) U/L Alkaline Phosphatase (38-126) U/L Ammonia 13 (<30) umol/L Total Creatine Kinase (30-135) U/L CK-MB (CK-2) (0.0-2.4) ng/mL CK-MB (CK-2) Rel Index Troponin I (0.000-0.034) ng/mL Total Protein (6.3-8.2) g/dL Albumin (3.5-5.0) g/dL Amylase (30-110) U/L Lipase (23-300) U/L Urine Color Light Yellow Urine Appearance Clear (Clear) Urine pH 6.0 (5.0-8.0) Ur Specific [place] 1.002 (1.001-1.035) Urine Protein Negative (Negative) Urine Glucose (UA) Negative (Negative) Urine Ketones Negative (Negative) Urine Blood Moderate H (Negative) Urine Nitrite Negative (Negative) Urine Bilirubin Negative (Negative) Urine Urobilinogen <2.0 (<2.0) mg/dL Ur Leukocyte Esterase Negative (Negative) Urine RBC <1 (0-5) /hpf Ur Squamous Epith Cells <1 (0-4) /hpf Urine Bacteria Rare H (None) /hpf Urine Mucus Rare H (None) /hpf Urine HCG, Qual Not Detected (Not Detectd) Urine Opiates Screen Not Detected (NotDetected) Ur Oxycodone Screen Not Detected (NotDetected) Urine Methadone Screen Not Detected (NotDetected) Ur Propoxyphene Screen Not Detected (NotDetected) Ur Barbiturates Screen Not Detected (NotDetected) U Tricyclic Antidepress Not Detected (NotDetected) Ur Phencyclidine Scrn Not Detected (NotDetected) Ur Amphetamines Screen Not Detected (NotDetected) U Methamphetamines Scrn Not Detected (NotDetected) U Benzodiazepines Scrn Detected H (NotDetected) Urine Cocaine Screen Not Detected (NotDetected) U Marijuana (THC) Screen Not Detected (NotDetected) Serum Alcohol mg/dL - Radiology Data Radiology results: report reviewed (I did review the imaging and reports.), image reviewed Disposition Clinical Impression: Alcohol intoxication, Alcohol abuse Disposition: HOME SELF-CARE Condition: Good Instructions: Alcohol Intoxication (ED) Referrals: Miguel Graves DO [Primary Care Provider] - 1-2 days Decision Time: 17:30
[2017-06-30 17:07] LABS: Creatine Kinase MB 0.5 ng/mL (0.0-2.4); Troponin I <0.012 ng/mL (0.000-0.034)
[2017-06-30 17:33] VITALS: BP 131/82; PULSE 93
== END 2017-06-30 17:58 | disposition home or self-care (01) ==
LOC: EC 15:07
DX: F10.129 Alcohol abuse with intoxication, unspecified (principal); S50.11XD Contusion of right forearm, subsequent encounter; F17.200 Nicotine dependence, unspecified, uncomplicated; Z91.018 Allergy to other foods; X58.XXXD Exposure to other specified factors, subsequent encounter
CPT/HCPCS: 36415; 80053; 82140; 82150; 82550; 82553; 83690; 83735; 84484; 85025; 81001; 81025; 80306; 80320; 71010; 99284; 96365; J3411

== ENCOUNTER 2017-07-16 05:28 | Emergency (ER) | payer OTHER ==
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
[2017-07-16] MEDS ORDERED: LORazepam 2 MG/ML INJ IV PRN ×3 (06:38)
[2017-07-16] MEDS ORDERED: SODIUM CHLORIDE 0.9% 1,000 ML IV ONE (07:50)
[2017-07-16 12:32] VITALS: BP 119/70; PULSE 102; RESP 17; TEMP 97.5
[2017-07-16] MEDS ORDERED: LORazepam 1 MG TAB PO STA ×2 (17:00→17:23)
== END 2017-07-16 17:27 | disposition home or self-care (01) ==
LOC: EC 05:28
DX: F10.10 Alcohol abuse, uncomplicated (principal); F17.200 Nicotine dependence, unspecified, uncomplicated; Z91.018 Allergy to other foods
CPT/HCPCS: 80306; 81025; 82075; 96360; 96361; 99284

== ENCOUNTER 2019-07-09 08:25 | Inpatient (IN) | payer OTHER ==
--- NOTE | 2019-07-09 09:20 | ED ---
Psych HPI - General Source: patient, police, RN notes reviewed, old records reviewed Mode of arrival: ambulatory <AubreyromarioCe - Last Filed: 07/09/19 17:22> <Nilton Aguiar - Last Filed: 07/09/19 22:32> - General Chief Complaint: Psychiatric Symptoms Stated Complaint: MENTAL HEALTH Time Seen by Provider: 07/09/19 08:40 - History of Present Illness Initial Comments: Patient is a 30-year-old female with a history of PTSD, and history of marijuana use, and previous heavy alcohol use and drug use. She presents today with visual hallucinations. Patient reports over the past 2 weeks she's been seeing homeless people around her yard and in her car. Patient does recognize that these are hallucinations. Patient states that she's been recommended that she comes anxious as she seeing these homeless people that are surrounding her house. Patient states that she recently was started on Prazosin for PTSD, and nightmares. Patient reports that she was started this on the and feels that her hallucinations have worsened since taking this medication. Patient's sister did call and states that she's been having a heavy ingestion of can't feet caffeine substances and has not slept in 4 days. Patient is a . (Ce Jaramillo) - Related Data Home Medications Medication Instructions Recorded Confirmed Methocarbamol [Robaxin] 500 mg PO BID PRN 07/09/19 07/09/19 Naproxen 500 mg PO BID PRN 07/09/19 07/09/19 Allergies Allergy/AdvReac Type Severity Reaction Status Date / Time eggplant Allergy Anaphylaxis Uncoded 07/09/19 10:01 Review of Systems ROS Other: All systems not noted in ROS Statement are negative. <JessicadarrylCe - Last Filed: 07/09/19 17:22> ROS Other: All systems not noted in ROS Statement are negative. <Nilton Aguiar - Last Filed: 07/09/19 22:32> ROS Statement: Those systems with pertinent positive or pertinent negative responses have been documented in the HPI. Past Medical History Past Medical History: No Reported History Additional Past Medical History / Comment(s): ETOH History of Any Multi-Drug Resistant Organisms: None Reported Past Surgical History: Tonsillectomy Past Anesthesia/Blood Transfusion Reactions: No Reported Reaction Past Psychological History: Anxiety, Depression, PTSD Smoking Status: Current every day smoker Past Alcohol Use History: Abuse, Daily, Heavy Past Drug Use History: Marijuana - Past Family History Mother Family Medical History: Cancer Additional Family Medical History / Comment(s): Breast and ovarian CA Brother(s) Family Medical History: No Reported History <EllaCe - Last Filed: 07/09/19 17:22> General Exam Limitations: no limitations Head exam: Present: atraumatic, normocephalic, normal inspection Eye exam: Present: normal appearance ENT exam: Present: normal exam, mucous membranes moist Neck exam: Present: normal inspection. Absent: tenderness, meningismus, lymphadenopathy Respiratory exam: Present: normal lung sounds bilaterally. Absent: respiratory distress, wheezes, rales, rhonchi, stridor Cardiovascular Exam: Present: regular rate, normal rhythm, normal heart sounds. Absent: systolic murmur, diastolic murmur, rubs, gallop, clicks GI/Abdominal exam: Present: soft, normal bowel sounds. Absent: distended, tenderness, guarding, rebound, rigid Back exam: Present: normal inspection Neurological exam: Present: alert, oriented X3, CN II-XII intact Psychiatric exam: Present: manic. Absent: normal affect, normal mood Skin exam: Present: warm, dry, intact, normal color. Absent: rash <Ce Jaramillo - Last Filed: 07/09/19 17:22> - General Exam Comments Initial Comments: This is a 30-year-old female. Alert and oriented 3. Pleasant she does have some pressured speech and appears manic. (Ce Jaramillo) Course Vital Signs 07/09/19 07/09/19 08:30 18:57 Temperature 97.9 F Pulse Rate 90 78 Respiratory 20 18 Rate Blood Pressure 137/80 130/79 O2 Sat by Pulse 99 97 Oximetry Medical Decision Making <Ce Jaramillo - Last Filed: 07/09/19 17:22> <Nilton Aguiar - Last Filed: 07/09/19 22:32> - Medical Decision Making Patient is a 38-year-old female, presents is firm today quite manic, with visual hallucinations. She is has not slept in approximately 4 days according to sister. Patient reports that she's been seeing homeless people. She denies any physical complaints this time and does recognize these are hallucinations. She denies any suicidal thoughts. Patient with her at this time for EPS evaluation. Patient case transferred to Dr. Aguiar At 5:30 PM. (Ce Jaramillo) 38 female who is seen eval by psychiatry, patient be transferred for inpatient psychiatric hospitalization with the [facility] (Nilton Aguiar) - Lab Data Lab Results 07/09/19 Range/Units 08:45 Urine Opiates Screen Not Detected (NotDetected) Ur Oxycodone Screen Not Detected (NotDetected) Urine Methadone Screen Not Detected (NotDetected) Ur Propoxyphene Screen Not Detected (NotDetected) Ur Barbiturates Screen Not Detected (NotDetected) U Tricyclic Antidepress Not Detected (NotDetected) Ur Phencyclidine Scrn Not Detected (NotDetected) Ur Amphetamines Screen Not Detected (NotDetected) U Methamphetamines Scrn Not Detected (NotDetected) U Benzodiazepines Scrn Not Detected (NotDetected) Urine Cocaine Screen Not Detected (NotDetected) U Marijuana (THC) Screen Detected H (NotDetected) Disposition <Ce Jaramillo - Last Filed: 07/09/19 17:22> Is patient prescribed a controlled substance at d/c from ED?: No <Nilton Aguiar - Last Filed: 07/09/19 22:32> Clinical Impression: Depression, Suicidal ideation Disposition: TRANSFER TO PSYCH HOSP/UNIT Condition: Fair Referrals: None,Stated [Primary Care Provider] - 1-2 days
[2019-07-09 09:27] LABS: Amphetamine Screen,Urine Not Detected (NotDetected); Barbiturate Screen,Urine Not Detected (NotDetected); Benzodiazepines Screen,Urine Not Detected (NotDetected); Cocaine Screen,Urine Not Detected (NotDetected); Methadone Screen, Urine Not Detected (NotDetected); Opiate Screen,Urine Not Detected (NotDetected); Oxycodone Screen, Urine Not Detected (NotDetected); Phencyclidine Screen,Urine Not Detected (NotDetected); Tricyclic Antidepressant,Urine Not Detected (NotDetected); Urn Cannabinoid Scrn Detected (NotDetected)
[2019-07-09] MEDS ORDERED: LORazepam 2 MG/ML INJ IM STA (14:40)
[2019-07-09] MEDS ORDERED: LORazepam 1 MG TAB PO STA ×2 (14:41→20:10)
[2019-07-09] MEDS ORDERED: NICOTINE 14MG/24HR PATCH TRANSDERM STA (16:41)
[2019-07-09] MEDS ORDERED: ACETAMINOPHEN TAB 325 MG TAB PO PRN (23:25)
[2019-07-09] MEDS ORDERED: ZIPRASIDONE 20 MG VIAL IM PRN (23:25)
[2019-07-09] MEDS ORDERED: MAGNESIUM HYDROXIDE 2,400 MG/10 ML CUP PO PRN (23:25)
[2019-07-09] MEDS ORDERED: MAG HYDROX/AL HYDROX/SIMETH 30 ML CUP PO PRN (23:25)
[2019-07-09 23:47] LABS: Appearance,Urine Clear (Clear); Bilirubin,Urine Negative (Negative); Blood,Urine Negative (Negative); Color,Urine Light Yellow; Glucose,Urine (UA) Negative (Negative); Ketones,Urine Negative (Negative); Leukocyte Esterase,Urine Negative (Negative); Nitrite,Urine Negative (Negative); Protein,Urine Negative (Negative); Urobilinogen,Urine <2.0 mg/dL (<2.0)
[2019-07-10] MEDS: NICOTINE 14MG/24HR PATCH TRANSDERM SCH (07:55)
--- NOTE | 2019-07-10 16:35 | P.HP ---
Psychiatric H&P - . H&P Date: 07/10/19 History & Physical: Allergies Allergy/AdvReac Type Severity Reaction Status Date / Time eggplant Allergy Anaphylaxis Uncoded 07/09/19 10:01 Vital Signs Temp 98.5 F 07/10/19 07:05 Pulse 79 07/10/19 07:05 Resp 16 07/10/19 07:05 BP 119/71 07/10/19 07:05 Pulse Ox 96 07/09/19 23:29 Intake & Output 07/09/19 07/10/19 07/10/19 18:59 06:59 18:59 Weight 51.256 kg 50.802 kg Laboratory Last Values Urine Color Light Yellow 07/09/19 08:45 Urine Appearance Clear (Clear) 07/09/19 08:45 Urine pH 7.0 (5.0-8.0) 07/09/19 08:45 Ur Specific Niland 1.010 (1.001-1.035) 07/09/19 08:45 Urine Protein Negative (Negative) 07/09/19 08:45 Urine Glucose (UA) Negative (Negative) 07/09/19 08:45 Urine Ketones Negative (Negative) 07/09/19 08:45 Urine Blood Negative (Negative) 07/09/19 08:45 Urine Nitrite Negative (Negative) 07/09/19 08:45 Urine Bilirubin Negative (Negative) 07/09/19 08:45 Urine Urobilinogen <2.0 mg/dL (<2.0) 07/09/19 08:45 Ur Leukocyte Esterase Negative (Negative) 07/09/19 08:45 Urine HCG, Qual Not Detected (Not Detectd) 07/09/19 08:45 Urine Opiates Screen Not Detected (NotDetected) 07/09/19 08:45 Ur Oxycodone Screen Not Detected (NotDetected) 07/09/19 08:45 Urine Methadone Screen Not Detected (NotDetected) 07/09/19 08:45 Ur Propoxyphene Screen Not Detected (NotDetected) 07/09/19 08:45 Ur Barbiturates Screen Not Detected (NotDetected) 07/09/19 08:45 U Tricyclic Antidepress Not Detected (NotDetected) 07/09/19 08:45 Ur Phencyclidine Scrn Not Detected (NotDetected) 07/09/19 08:45 Ur Amphetamines Screen Not Detected (NotDetected) 07/09/19 08:45 U Methamphetamines Scrn Not Detected (NotDetected) 07/09/19 08:45 U Benzodiazepines Scrn Not Detected (NotDetected) 07/09/19 08:45 Urine Cocaine Screen Not Detected (NotDetected) 07/09/19 08:45 U Marijuana (THC) Screen Detected (NotDetected) H 07/09/19 08:45 07/10/19 16:31 Chief complaint I had bad reaction to medications History of presenting illness Two months ago the patient was seen at [facility] and was restarted on Prazosin and Mirtazapine after being off of these medications for 6 months. She claims to have developed paranoia, hallucinations after being started back on prazosin and mirtazapine. She described her hallucinations and paranoia as seeing people who were not really there and paranoid ideations about her sister. She claims to have stopped taking those medications six days ago and claims she no longer feels paranoid and has no hallucinations. She currently states she has an appointment scheduled with [facility] on july 12, 2019. She currently wants to be started on a different medication that will help her with anxiety stating her anxiety triggers her nightmares. She reports being diagnosed with PTSD one year ago and has received lexapro, prazosin and mirtazapine through [facility]. 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 She is eager to get discharged so she can continue with her work and studies. Past psychiatric history She reports being diagnosed with PTSD one years ago and has received lexapro, prazosin and mirtazapine through [facility]. She says lexapro made her sick. Prazosin and mirtazapine worked initially, however she has stopped taking those medications and claims to have developed hallucinations and paranoia after being restarted back on them two months ago at [facility]. She reports to have received 30 days rehab treatment for alcohol through [facility]. She also reports have received 3months intense out patient program, 3 months of PTSD clinic and 3 months of PSR program through [facility] 07/2017-06/09/2018. Substance use history Reports history of alcohol use from the age of 20, consumed 12 pack beer daily. Says her last drink was two years ago. She reports to have received 30 days rehab treatment for alcohol through [facility] FROM 07-14-2017. Smokes pack a day of cigarettes. Denies use of other illicit drugs. UDS was positive for marijuana Legal problems None reported. Family psychiatric treatment history Denies Medical history None reported Social history Born in [place], moved to [place] in 1988 (6 yrs old) . Raised by both parents. Denies history of abuse. She has four siblings. Served in [employer] from 2000- 2005. Diagnosed with PTSD, gets disability. Lives with her sister and two nieces. Single, no children. 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 Mental status exam 38 Year old woman. Appears her stated age in fair grooming and hygiene. No abnormal movements noted. She maintains good eye contact. Her speech and thought process are goal directed. Mood is reported as hopeful and affect constricted. Denies current auditory or visual hallucinations. She denies current paranoid ideations. She is alert and oriented x 4. She denies current suicidal or homicidal ideations. Diagnosis PTSD Marijuana abuse Plan 38-year-old male admitted emergency department with acute psychosis. Medicine consult for physical examination psychosocial evaluation. After discussing benefits and risks of medications she has agreed to take zoloft. Will start zoloft 25mg po qday and dose will titrated as tolerated and responsiveness. Monitor for symptoms will receive milieu therapy group therapy individual therapy occupational therapy recreational therapy and medication education. Discharge with outpatient follow-up. Referral to out patient substance use program Treatment goals: Medication stabilization Insight improvement, encourage treatment adherence and development of better coping skills
[2019-07-10] MEDS: SERTRALINE 25 MG TAB PO SCH (17:34)
[2019-07-10] MEDS: LORazepam 1 MG TAB PO PRN (20:23)
[2019-07-11] MEDS: SERTRALINE 25 MG TAB PO SCH (09:19)
[2019-07-11] MEDS: NICOTINE 14MG/24HR PATCH TRANSDERM SCH (09:19)
[2019-07-11 14:06] VITALS: BMI 20.5
--- NOTE | 2019-07-11 14:45 | P.PN ---
Progress Note - Text Progress Note Date: 07/11/19 Identifying Information 38-year-old female with a history of PTSD, history of marijuana use admitted to [facility] with acute psychosis which could have been due to her marijuana use but patient believes her psychosis/hallucinations are due to her medications prazosin and remeron Interval history Patient was seen today. She says I am here only to get my medications prazosin and remeron out of my system, so I dont hallucinate. She says it is very important for me to be out of here by tomorrow morning before 9:30am. She says, she has an appointment scheduled with [facility] at 9am tomorrow and also claims she has an assignment she has to submit to college and is anxious to leave the [facility] stating she has been here for 72 hrs. She reports good sleep and appetite. She stays inside her room most of the time stating she is not here to attend groups. Mental status exam 38 Year old woman. Appears her stated age in fair grooming and hygiene. No abnormal movements noted. She maintains good eye contact. Her speech and thought process are goal directed. Mood is reported as good and affect constricted. Denies current auditory or visual hallucinations. She denies current paranoid ideations. She is alert and oriented x 4. She denies current suicidal or homicidal ideations. Diagnosis PTSD Marijuana abuse Plan Continue zoloft 25mg po qday for PTSD, dose to be titrated as tolerated
[2019-07-11] MEDS: LORazepam 1 MG TAB PO PRN (20:56)
--- NOTE | 2019-07-11 22:43 | P.MDCNMH ---
History of Present Illness H&P Date: 07/11/19 Chief Complaint: Auditory and visual hallucinations 38-year-old female with history of PTSD This is. Third Attempt to evaluate the patient, this time I was able to interview the patient she was very concise and provided limited information. She wasn't very interested as all she wanted this to leave the hospital to see her outpatient doctors. She reported auditory and visual hallucinations where he was seeing homeless people around her house. She also hears auditory hallucinations but denies any suicidal thoughts or homicidal ideations. Patient wasn't interested in providing any further history she claims that she wasn't taking any medications at home at this time as she thought they might be contributing to her symptoms. She denies any physical complaints at this time denies any fevers or chills denies any abdominal pain chest pain coughing. However when I ask her why she was drenched in sweat she claimed that the room was too hot and she was covered with multiple blankets as she was getting ready to sleep. She didn't think it's of any significance at this time Review of Systems Pertinent positives as noted in HPI. All other systems were reviewed and are negative Past Medical History Past Medical History: No Reported History Additional Past Medical History / Comment(s): ETOH History of Any Multi-Drug Resistant Organisms: None Reported Past Surgical History: Tonsillectomy Past Anesthesia/Blood Transfusion Reactions: No Reported Reaction Past Psychological History: Anxiety, Depression, PTSD Smoking Status: Current every day smoker Past Alcohol Use History: Abuse, Daily, Heavy Past Drug Use History: Marijuana - Past Family History Mother Family Medical History: Cancer Additional Family Medical History / Comment(s): Breast and ovarian CA Brother(s) Family Medical History: No Reported History Medications and Allergies Home Medications Medication Instructions Recorded Confirmed Type Methocarbamol [Robaxin] 500 mg PO BID PRN 07/09/19 07/09/19 History Naproxen 500 mg PO BID PRN 07/09/19 07/09/19 History Allergies Allergy/AdvReac Type Severity Reaction Status Date / Time eggplant Allergy Anaphylaxis Uncoded 07/09/19 10:01 Physical Exam Vitals: Intake and Output 07/11/19 07/11/19 07/11/19 06:59 14:59 22:59 Other: Weight 50.802 kg Constitutional: No acute distress, pressured speech, patient was drenched with sweat Eyes: Anicteric sclerae, moist conjunctiva, no lid-lag Pupils equal round reactive to light ENMT: NC/AT Oropharynx clear, no erythema, exudates Neck: Supple, FROM, no masses, or JVD No carotid bruits No thyromegaly Lungs: Clear to auscultation Clear to percussion Normal respiratory effort, no accessory muscle use Cardiovascular: Heart regular in rate and rhythm, No murmurs, gallops, or rubs No peripheral edema Abdominal: Soft Nontender, no guarding, rebound or rigidity Abdomen moving with respiration Normoactive bowel sounds No hepatomegaly, No splenomegaly No palpable mass No abdominal wall hernia noted Skin: Normal temperature, tone, texture, turgor No induration No subcutaneous nodules No rash, lesions No ulcers Extremities: No digital cyanosis No clubbing Pedal pulses intact and symmetrical Radial pulses intact and symmetrical No calf tenderness Psychiatric: Alert and oriented to person, place and time Very anxious fair judgement Neuro Muscles Strength 5/5 in all 4 extremities Sensation to light touch grossly present throughout Cranial nerves II-XII grossly intact No focal sensory deficits Lymphatics: no palpable cervical or supraclavicular , or inguinal lymph nodes Cranial Nerve Examination - Cranial Nerves Cranial Nerve II- Optic: Intact Cranial Nerve III- Oculomotor: Intact Cranial Nerve IV- Trochlear: Intact Cranial Nerve V- Trigeminal: Intact Cranial Nerve - Abducens: Intact Cranial Nerve VII- Facial: Intact Cranial Nerve VIII- Auditory: Intact Cranial Nerve IX- Glossopharyngeal: Intact Cranial Nerve X- Vagus: Intact Cranial Nerve XI- Accessory: Intact Cranial Nerve XII- Hypoglossal: Intact Assessment and Plan Assessment: patient with history of PTSD admitted due to visual and auditory hallucinations currently denies any medical or physical complaints Plan: Acute psychosis with visual and auditory hallucinations History of PTSD Management per psych Low risk for DVT patient is ambulatory Check thyroid function Thank you for allowing us to participate in the care of this patient. We will follow peripherally. Do not hesitate to contact us with questions. Someone can be reached from the [facility] hospitalist group at all hours of the day at [phone].
[2019-07-12] MEDS: NICOTINE 14MG/24HR PATCH TRANSDERM SCH (07:51)
[2019-07-12] MEDS: SERTRALINE 25 MG TAB PO SCH (07:51)
[2019-07-12 11:58] LABS: HCT 43.2 % (34.0-46.0); HGB 14.9 gm/dL (11.4-16.0); MCHC 34.5 g/dL (31.0-37.0); MCV 92.6 fL (80.0-100.0); Mean Platelet Volume 6.7; Platelet Count 397 k/uL (150-450); RBC 4.66 m/uL (3.80-5.40)
[2019-07-12 12:13] LABS: ALT 30 U/L (9-52); AST 25 U/L (14-36); African American GFR (CKD) >90 (>60 ml/min/1.73 sqM); Albumin 4.7 g/dL (3.5-5.0); Alkaline Phosphatase 50 U/L (38-126); Anion Gap 12 mmol/L; Blood Urea Nitrogen 11 mg/dL (7-17); Calcium 10.5 mg/dL (8.4-10.2); Carbon Dioxide 25 mmol/L (22-30); Chloride 101 mmol/L (98-107); Glucose 80 mg/dL (74-99); Potassium 4.9 mmol/L (3.5-5.1); Sodium 138 mmol/L (137-145); Total Bilirubin 0.7 mg/dL (0.2-1.3); Total Protein 7.6 g/dL (6.3-8.2)
[2019-07-12] MEDS ORDERED: SERTRALINE 25 MG TAB PO STA (13:48)
--- NOTE | 2019-07-12 13:55 | P.PN ---
Progress Note - Text Progress Note Date: 07/12/19 Interval History: Patient was seen today in her room and was agreeable to speak to underwriter in the office. Patient explained why she came to the hospital as she was feeling like she was off her medications anxious/depressed and seeing visual hallucinations of people looking at her. Patient appeared to be labile during the conversation and appeared to be anxious and tearful. She states that she wants to go home and wants to go to her outpatient appointments. She states that she wanted to be off her medications that she felt was causing her to feel paranoid. Patient claims that she does not go to groups and doesn't feel like she needs to. Patient was superficial about her symptoms and the improvement of her mood. She states that she slept well last night and has fair energy. Patient endorsed PTSD symptoms including hypervigilance and avoiding crowds along with nightmares. At this time patient denies any suicidal or homical ideations, intent or plan. Patient denies any auditory, visual hallucinations and denies any paranoia or delusions. Patient denies any side effects from the medications and has been compliant with meds. Mental Status Exam: General Appearance: Patient appears to be stated age is alert, directable, and demanding. Patient has poor hygiene and poor grooming. Behavior: Patient is calmly seated without any agitated behavior. Vision is tearful at times. Speech: Patient's speech is fluent and nonpressured. Mood/Affect: Mood is improving, affect is congruent and constricted. Patient is labile. Suicidality/Homicidality: Patient denies having any suicidal or homicidal ideation intent or plan. Perceptions: Patient denies any auditory or visual hallucinations. Though content/process: There is no evidence of any delusional thought content and thought process is linear and goal-directed. Patient is preoccupied with discharge. Memory and concentration: AOX3, grossly intact for the purposes of this session Judgment and insight: Superficial and poor. Assessment Major depressive disorder History of PTSD Cannabis use disorder Plan: -Patient continues to meet criteria for inpatient psychiatric admission for symptom stabilization and safety. Patient has signed adult voluntary form and medication consent and was placed in patient's chart. -Medications: We'll increase Zoloft to 50 mg daily for anxiety/mood/PTSD symptoms. Plan will be to increase further as tolerated. -When necessary Geodon and Ativan for agitation/aggression. -NRT - nicotine patch -SW on board for discharge planning. Likely discharge in 2-3 days upon resolution of symptoms. Patient will need to be reset up with another appointment with [facility] for outpatient psychiatric care.
[2019-07-12] MEDS: LORazepam 1 MG TAB PO PRN (20:20)
[2019-07-13 06:51] VITALS: TEMP 99.1
[2019-07-13] MEDS: NICOTINE 14MG/24HR PATCH TRANSDERM SCH (08:27)
[2019-07-13] MEDS: SERTRALINE 50 MG TAB PO SCH (08:27)
--- NOTE | 2019-07-13 13:39 | P.PN ---
Progress Note - Text Progress Note Date: 07/13/19 Interval History: Patient was seen today in her room and was agreeable to speak to designer writer in the office. Patient today claims that she is feeling much better than yesterday and states that she is feeling a lot "calmer" with regards to the being on the medication at this time. She states that she is able to deal with her anxiety better and feel like her mood has been improving. Patient appeared to be less labile during the conversation today. She states that she is able to tolerate much more stressors and things that don't go her way. She states that she will stay away from baclofen and feels much better being off it and not having hallucinations. Patient claims that she does not go to groups and doesn't feel like she needs to. She states that she slept well last night and has fair energy. Patient states that she has an appointment with her primary care doctor tomorrow [facility] and would like to go to that appointment. Patient also states that she wants to follow-up with [facility] when she leaves the hospital. Patient was preoccupied about school and deadlines for schoolwork. At this time patient denies any suicidal or homical ideations, intent or plan. Patient denies any auditory, visual hallucinations and denies any paranoia or delusions. Patient denies any side effects from the medications and has been compliant with meds. Mental Status Exam: General Appearance: Patient appears to be stated age is alert, directable, and demanding. Patient has improved hygiene and poor grooming. Behavior: Patient is calmly seated without any agitated behavior. Speech: Patient's speech is fluent and nonpressured. Mood/Affect: Mood is improving, affect is congruent Suicidality/Homicidality: Patient denies having any suicidal or homicidal ideation intent or plan. Perceptions: Patient denies any auditory or visual hallucinations. Though content/process: There is no evidence of any delusional thought content and thought process is linear and goal-directed. Memory and concentration: AOX3, grossly intact for the purposes of this session Judgment and insight: Approve an Assessment Major depressive disorder History of PTSD Cannabis use disorder Plan: -Patient continues to meet criteria for inpatient psychiatric admission for symptom stabilization and safety. Patient has signed adult voluntary form and medication consent and was placed in patient's chart. -Medications: We'll continue with Zoloft to 50 mg daily for anxiety/mood/PTSD symptoms. I offered to increase patient's medication 100 mg however patient claimed that she would like to stay at the 50 mg dose and will be following up closely to see if that dose needs to be increased. -When necessary Lisa and Mandy for agitation/aggression. -NRT - nicotine patch -SW on board for discharge planning. Likely discharge tomorrow. Patient will need to be reset up with another appointment with [facility] for outpatient psychiatric care and will be following up at the [facility] for primary care
[2019-07-13] MEDS: LORazepam 1 MG TAB PO PRN (20:04)
[2019-07-13 21:11] VITALS: BP 127/59; PULSE 95; RESP 16
--- NOTE | 2019-07-14 08:24 | P.DS ---
Providers Date of admission: 07/09/19 23:01 Expected date of discharge: 07/14/19 Attending physician: Eben Bran MD Consults: 07/09/19 23:25 Consult Physician Routine Consulting Provider: Chelle Terrazas Consult Reason/Comments: H & P Do you want consulting provider notified?: Yes Primary care physician: Stated None - Discharge Diagnosis(es) (1) History of posttraumatic stress disorder (PTSD) Current Visit: Yes Status: Acute Priority: Medium (2) Cannabis use disorder, mild, abuse Current Visit: Yes Status: Acute Priority: Low (3) Substance or medication-induced psychotic disorder Current Visit: Yes Status: Acute Priority: High (4) Depression Current Visit: Yes Status: Acute Priority: High Hospital Course: Admission HPI: Patient was admitted after two months ago when the patient was seen at [facility] and was restarted on Prazosin and Mirtazapine after being off of these medications for 6 months. She claims to have developed paranoia, hallucinations after being started back on prazosin and mirtazapine. She described her hallucinations and paranoia as seeing people who were not really there and paranoid ideations about her sister. She claims to have stopped taking those medications six days ago and claims she no longer feels paranoid and has no hallucinations. She currently states she has an appointment scheduled with [facility] on july 12, 2019. She currently wants to be started on a different medication that will help her with anxiety stating her anxiety triggers her nightmares. She reports being diagnosed with PTSD one year ago and has received lexapro, prazosin and mirtazapine through [facility]. 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 She is eager to get discharged so she can continue with her work and studies. She reports being diagnosed with PTSD one years ago and has received lexapro, prazosin and mirtazapine through [facility]. She says lexapro made her sick. Prazosin and mirtazapine worked initially, however she has stopped taking those medications and claims to have developed hallucinations and paranoia after being restarted back on them two months ago at [facility]. Hospital course: Upon admission to the unit patient was initially demanding and irritable. Patient was however directable and agreeable to commence treatment. Patient got along well with other patients on the unit and followed unit protocol. Patient was compliant with the medications and denied any side effects throughout hospital course. Patient was started on Zoloft and titrated up to 50 mg daily for mood/anxiety. It was recommended that patient go up to 100 mg however patient claimed that she did not want this and wanted to remain on 50 mg. Patient spoke of her stressors individual therapy and chose not to go to groups as she did not feel comfortable in that environment. Patient was also seen by medical team for history and physical exam. Throughout the course of the hospitalization patient gradually improved with regards to mood, anxiety, sleep and became future oriented with improved insight and judgment. The likely culprit for the psychotic symptoms including visual and auditory hallucinations prior to admission was most likely due to baclofen. This medication was stopped several days before patient came into the hospital and patient did not endorse any more psychotic symptoms including auditory or visual hallucinations or paranoia. On the day of discharge patient denied any suicidal or homicidal ideations intent or plan denied any auditory or visual hallucinations. Patient endorsed wanting to live for her career/education and her family. The patient denied any access to guns or weapons. Patient denied any paranoia and did not endorse any delusions. Patient does have a significant history of substance abuse and was counseled on abstaining from all substances including alcohol and marijuana. Patient was also counseled on the medications and need for regular compliance and was encouraged to follow-up with their outpatient appointment for mental health and also for primary care. Prior to discharge a family meeting will be arranged by adoption social worker to answer any questions and ensure safety upon discharge. Mental status exam: General Appearance: Patient appears to be stated age is alert, pleasant, and cooperative. Patient is in no acute distress and has fair hygiene and grooming Behavior: Patient is calmly seated without any agitated behavior. Speech: Patient's speech is fluent and nonpressured. Mood/Affect: Patient reports their mood is "calm", affect is congruent and euthymic. Suicidality/Homicidality: Patient denies having any suicidal or homicidal ideation intent or plan. Perceptions: Patient denies any auditory or visual hallucinations. Though content/process: There is no evidence of any delusional thought content and thought process is linear and goal-directed. Memory and concentration: AOX3, grossly intact for the purposes of this session. Can spell "WORLD" backwards correctly. Judgment and insight: fair, improved Impression: Major depressive disorder Medication or substance induced psychosis History of PTSD Cannabis use disorder Plan: -Continue with discharge today as patient has improved and stabilized psychiatrically and is not currently an imminent threat to herself and/or others. -Continue medications: Patient to be continued on Zoloft 50 mg daily for mood/anxiety. I explained to the patient that she may require a higher dose in the future and although we would've liked to increase the dose further patient did not want this and want to remain on the current dose for now. -Patient was counseled on the need for medication compliance and appropriate follow-up at mental health and also primary care for medical issues. Patient verbalized understanding and agreed. -Social work to arrange for and conduct family meeting to ensure safety upon discharge and answer any questions/concerns. Social work also to arrange for patients follow up appointments with [facility] for psychiatric care and patient will be going today to the [facility] for her primary care appointment. -Patient counseled on abstaining from recreational drugs and marijuana and alcohol. Was informed/educated on the adverse effects on their physical and mental health. Patient agreed to wanting to cut back on her marijuana use on her own. -Patient was instructed to return to the hospital or seek immediate medical care if their psychiatric or medical systems do worsen or reoccur. Allergies Allergy/AdvReac Type Severity Reaction Status Date / Time eggplant Allergy Anaphylaxis Uncoded 07/09/19 10:01 Laboratory Results WBC 13.0 k/uL (3.8-10.6) H 07/12/19 11:33 RBC 4.66 m/uL (3.80-5.40) 07/12/19 11:33 Hgb 14.9 gm/dL (11.4-16.0) 07/12/19 11:33 Hct 43.2 % (34.0-46.0) 07/12/19 11:33 MCV 92.6 fL (80.0-100.0) 07/12/19 11:33 MCH 32.0 pg (25.0-35.0) 07/12/19 11:33 MCHC 34.5 g/dL (31.0-37.0) 07/12/19 11:33 RDW 13.0 % (11.5-15.5) 07/12/19 11:33 Plt Count 397 k/uL (150-450) 07/12/19 11:33 Sodium 138 mmol/L (137-145) 07/12/19 11:33 Potassium 4.9 mmol/L (3.5-5.1) 07/12/19 11:33 Chloride 101 mmol/L (98-107) 07/12/19 11:33 Carbon Dioxide 25 mmol/L (22-30) 07/12/19 11:33 Anion Gap 12 mmol/L 07/12/19 11:33 BUN 11 mg/dL (7-17) 07/12/19 11:33 Creatinine 0.63 mg/dL (0.52-1.04) 07/12/19 11:33 Est GFR (CKD-EPI)AfAm >90 (>60 ml/min/1.73 sqM) 07/12/19 11:33 Est GFR (CKD-EPI)NonAf >90 (>60 ml/min/1.73 sqM) 07/12/19 11:33 Glucose 80 mg/dL (74-99) 07/12/19 11:33 Calcium 10.5 mg/dL (8.4-10.2) H 07/12/19 11:33 Total Bilirubin 0.7 mg/dL (0.2-1.3) 07/12/19 11:33 AST 25 U/L (14-36) 07/12/19 11:33 ALT 30 U/L (9-52) 07/12/19 11:33 Alkaline Phosphatase 50 U/L (38-126) 07/12/19 11:33 Total Protein 7.6 g/dL (6.3-8.2) 07/12/19 11:33 Albumin 4.7 g/dL (3.5-5.0) 07/12/19 11:33 TSH 0.924 mIU/L (0.465-4.680) 07/12/19 11:33 Urine Color Light Yellow 07/09/19 08:45 Urine Appearance Clear (Clear) 07/09/19 08:45 Urine pH 7.0 (5.0-8.0) 07/09/19 08:45 Ur Specific [place] 1.010 (1.001-1.035) 07/09/19 08:45 Urine Protein Negative (Negative) 07/09/19 08:45 Urine Glucose (UA) Negative (Negative) 07/09/19 08:45 Urine Ketones Negative (Negative) 07/09/19 08:45 Urine Blood Negative (Negative) 07/09/19 08:45 Urine Nitrite Negative (Negative) 07/09/19 08:45 Urine Bilirubin Negative (Negative) 07/09/19 08:45 Urine Urobilinogen <2.0 mg/dL (<2.0) 07/09/19 08:45 Ur Leukocyte Esterase Negative (Negative) 07/09/19 08:45 Urine HCG, Qual Not Detected (Not Detectd) 07/09/19 08:45 Urine Opiates Screen Not Detected (NotDetected) 07/09/19 08:45 Ur Oxycodone Screen Not Detected (NotDetected) 07/09/19 08:45 Urine Methadone Screen Not Detected (NotDetected) 07/09/19 08:45 Ur Propoxyphene Screen Not Detected (NotDetected) 07/09/19 08:45 Ur Barbiturates Screen Not Detected (NotDetected) 07/09/19 08:45 U Tricyclic Antidepress Not Detected (NotDetected) 07/09/19 08:45 Ur Phencyclidine Scrn Not Detected (NotDetected) 07/09/19 08:45 Ur Amphetamines Screen Not Detected (NotDetected) 07/09/19 08:45 U Methamphetamines Scrn Not Detected (NotDetected) 07/09/19 08:45 U Benzodiazepines Scrn Not Detected (NotDetected) 07/09/19 08:45 Urine Cocaine Screen Not Detected (NotDetected) 07/09/19 08:45 U Marijuana (THC) Screen Detected (NotDetected) H 07/09/19 08:45 Vital Signs Temp 99.1 F 07/13/19 06:50 Pulse 95 07/13/19 20:00 Resp 16 07/13/19 20:00 BP 127/59 07/13/19 20:00 Pulse Ox 96 07/09/19 23:29 Patient Condition at Discharge: Stable Plan - Discharge Summary New Discharge Prescriptions: New Nicotine 14Mg/24Hr Patch [Habitrol] 1 patch TRANSDERM DAILY 14 Days patch Sertraline [Zoloft] 50 mg PO DAILY 28 Days tab Continue Methocarbamol [Robaxin] 500 mg PO BID PRN PRN Reason: Muscle Spasm Discontinued Naproxen 500 mg PO BID PRN PRN Reason: Pain Discharge Medication List Methocarbamol [Robaxin] 500 mg PO BID PRN 07/09/19 [History] Nicotine 14Mg/24Hr Patch [Habitrol] 1 patch TRANSDERM DAILY 14 Days patch 07/14/19 [Rx] Sertraline [Zoloft] 50 mg PO DAILY 28 Days tab 07/14/19 [Rx] Follow up Appointment(s)/Referral(s): [facility] [NON-STAFF] - 1 Week Patient Instructions/Handouts: Suicide Prevention (DC) Activity/Diet/Wound Care/Special Instructions: Activity and diet as tolerated. No guns or weapons in the home. Refrain from alcohol and street drugs not prescribed by your physician. If in need of med ication refills, please go to your primary care physician, or to your out patient psychiatric provider. Please take all medications as prescribed, and attend all after care appointments as scheduled. If in crisis, please call , or go the nearest ER for an evaluation. Discharge Disposition: HOME SELF-CARE
[2019-07-14] MEDS: SERTRALINE 50 MG TAB PO SCH (08:31)
[2019-07-14] MEDS: NICOTINE 14MG/24HR PATCH TRANSDERM SCH (08:32)
== END 2019-07-14 11:37 | disposition home or self-care (01) | DRG 885 ==
LOC: EC 08:25 → 3MHU 23:01
PROVIDERS: ADMIT Psychiatry & Neurology Psychiatry; ATTEND Psychiatry & Neurology Psychiatry
DX: F23 Brief psychotic disorder (principal); T42.8X5A Adverse effect of antiparkinsonism drugs and other central muscle-tone depressants, initial encounter; F32.9 Major depressive disorder, single episode, unspecified; F43.10 Post-traumatic stress disorder, unspecified; F41.9 Anxiety disorder, unspecified; F17.210 Nicotine dependence, cigarettes, uncomplicated; F12.10 Cannabis abuse, uncomplicated; Z79.899 Other long term (current) drug therapy; Z88.8 Allergy status to other drugs, medicaments and biological substances; Z80.41 Family history of malignant neoplasm of ovary; Z80.3 Family history of malignant neoplasm of breast
CPT/HCPCS: 80053; 80306; 81003; 81025; 82075; 84443; 85027; 96372; 99285